=== PATIENT | female | born 1960 | race Caucasian/White ===

== ENCOUNTER 2021-06-18 17:31 | Inpatient (IN) ==
[2021-06-18 19:11] LABS: ABG Base Excess -1 mEq/L (-2 to 3); ABG HCO3 21 mEq/L (21-27); ABG Oxygen Saturation 97 % (95-98); ABG PCO2 28 mmHg (35-45); ABG PH 7.49 pH Units (7.32-7.45); ABG PO2 85 mmHg (85-104); ABG TCO2 22 mEq/L (20-26)
[2021-06-18] MEDS ORDERED: Naloxone 0.4 MG/ML INJ IVP PRN (19:39)
[2021-06-18] MEDS ORDERED: Ondansetron 4 MG/2 ML VIAL IVP PRN (19:39)
[2021-06-18] MEDS: Acetaminophen 325 MG TABLET PO PRN (20:31)
[2021-06-18] MEDS ORDERED: Isovue-370 500 ML BOTTLE IVP ONE (22:48)
[2021-06-18] MEDS ORDERED: cefTRIAXone 1,000 MG in 0.9 % Sodium Chloride Mini Bag 100 ML IVPB SCH (22:54)
[2021-06-18] MEDS ORDERED: Azithromycin 500 MG in 0.9 % Sodium Chloride 250 ML IVPB SCH (23:00)
[2021-06-19 01:52] LABS: Basophils # 0.1 K/mcL (0.0-0.2); Basophils % 0.8 %; Eosinophils % 0.2 %; Hematocrit 39.3 % (35.3-44.9); Hemoglobin 12.8 g/dL (11.5-15.4); Immature Granulocytes % 1.1 % (0-4); Lymphocytes # 0.9 K/mcL (0.6-4.6); Lymphocytes % 14.3 %; Mean Corpuscular HGB Conc 32.6 g/dL (31.6-35.5); Mean Corpuscular Hemoglobin 30.9 pg (28.0-33.3); Mean Corpuscular Volume 94.9 fL (83.0-100.0); Mean Platelet Volume 12.1 fL (9.4-12.4); Monocytes # 0.2 K/mcL (0.0-1.3); Monocytes % 3.6 %; Neutrophils # 4.9 K/mcL (1.6-8.9); Platelet Count 173 K/mcL (140-400); Red Blood Count 4.14 M/mcL (3.82-4.97); White Blood Count 6.1 K/mcL (4.3-11.1)
[2021-06-19 02:09] LABS: Albumin 3.4 g/dL (3.5-5.7); Bilirubin,Direct 0.2 mg/dL (0.0-0.2); Bilirubin,Indirect 0.3 mg/dL (0.0-1.0); Bilirubin,Total 0.5 mg/dL (0.3-1.0); Globulin 3.4 g/dL (2.4-3.5); Total Protein 6.8 g/dL (6.4-8.9)
[2021-06-19 02:22] LABS: Platelet Estimate Normal (Normal)
[2021-06-19 02:37] LABS: BUN/Creatinine Ratio 25 (6-26); Blood Urea Nitrogen 20 mg/dL (8-23); Calcium 8.5 mg/dL (8.6-10.3); Carbon Dioxide 16 mEq/L (23-29); Chloride 104 mEq/L (98-107); Ferritin 313 ng/mL (10-120); Glucose 133 mg/dL (70-105); Lactate Dehydrogenase 552 Units/L (140-271); Osmolality,Calculated 283 (280-300); Potassium 4.3 mEq/L (3.5-5.1); Sodium 134 mEq/L (136-145); eGFR For African Americans > 60 (> 60); eGFR For Non-African Americans > 60 (> 60)
[2021-06-19] MEDS ORDERED: Remdesivir 200 MG in 0.9 % Sodium Chloride 100 ML IVPB ONE (03:02)
[2021-06-19] MEDS: *HR* Enoxaparin 40 MG/0.4 ML SYRINGE SQ SCH (05:29)
[2021-06-19] MEDS ORDERED: Dexamethasone Sodium Phos/PF 10 MG/ML VIAL IVP SCH (09:00)
[2021-06-19] MEDS ORDERED: TOCILIZUMAB IVPB ONE (14:00)
[2021-06-19] MEDS ORDERED: SODIUM CHLORIDE 0.9% IVPB ONE (14:00)
[2021-06-20] MEDS ORDERED: Remdesivir 100 MG in 0.9 % Sodium Chloride 100 ML IVPB SCH (04:00)
[2021-06-20] MEDS: *HR* Enoxaparin 40 MG/0.4 ML SYRINGE SQ SCH (05:53)
[2021-06-20] MEDS: Dexamethasone Sodium Phos/PF 10 MG/ML VIAL IVP SCH (08:25)
[2021-06-20] MEDS ORDERED: cefTRIAXone 1,000 MG in Water for inj. (sterile) 10 ML IVP SCH (09:00)
[2021-06-20] MEDS ORDERED: Azithromycin 250 MG TABLET PO SCH (09:00)
[2021-06-20 09:38] LABS: BUN/Creatinine Ratio 39 (6-26); Blood Urea Nitrogen 30 mg/dL (8-23); Carbon Dioxide 24 mEq/L (23-29); Chloride 105 mEq/L (98-107); Glucose 131 mg/dL (70-105); Osmolality,Calculated 294 (280-300); Potassium 4.3 mEq/L (3.5-5.1); Sodium 138 mEq/L (136-145); eGFR For African Americans > 60 (> 60); eGFR For Non-African Americans > 60 (> 60)
[2021-06-20 09:56] LABS: Ferritin 284 ng/mL (10-120)
[2021-06-20 11:22] LABS: C-Reactive Protein 105 mg/L (Less than 10); Calcium 8.8 mg/dL (8.6-10.3)
[2021-06-21] MEDS: *HR* Enoxaparin 40 MG/0.4 ML SYRINGE SQ SCH ×2 (06:28→21:42)
[2021-06-21 06:59] LABS: BUN/Creatinine Ratio 45 (6-26); Blood Urea Nitrogen 33 mg/dL (8-23); Calcium 9.1 mg/dL (8.6-10.3); Carbon Dioxide 24 mEq/L (23-29); Chloride 106 mEq/L (98-107); Glucose 133 mg/dL (70-105); Magnesium 2.5 mg/dL (1.6-2.6); Osmolality,Calculated 295 (280-300); Potassium 4.6 mEq/L (3.5-5.1); Sodium 138 mEq/L (136-145); eGFR For African Americans > 60 (> 60); eGFR For Non-African Americans > 60 (> 60)
[2021-06-21 07:12] LABS: Ferritin 280 ng/mL (10-120)
[2021-06-21] MEDS: Dexamethasone Sodium Phos/PF 10 MG/ML VIAL IVP SCH (09:06)
[2021-06-21 09:43] LABS: C-Reactive Protein 44 mg/L (Less than 10)
[2021-06-21 12:34] LABS: Hematocrit 41.3 % (35.3-44.9); Hemoglobin 13.4 g/dL (11.5-15.4); Mean Corpuscular HGB Conc 32.4 g/dL (31.6-35.5); Mean Corpuscular Hemoglobin 30.9 pg (28.0-33.3); Mean Corpuscular Volume 95.2 fL (83.0-100.0); Mean Platelet Volume 12.6 fL (9.4-12.4); Platelet Count 270 K/mcL (140-400); Red Blood Count 4.34 M/mcL (3.82-4.97); Red Cell Distribution Width 13.7 % (11.5-14.5)
[2021-06-21 12:44] LABS: White Blood Count 11.3 K/mcL (4.3-11.1)
[2021-06-21] MEDS: Furosemide 20 MG/2 ML VIAL IVP SCH (21:42)
[2021-06-22] MEDS ORDERED: *HR* LORazepam 2 MG/ML VIAL IVP ONE (00:44)
[2021-06-22 01:49] LABS: Hemoglobin 13.9 g/dL (11.5-15.4); Mean Corpuscular HGB Conc 33.1 g/dL (31.6-35.5); Mean Corpuscular Hemoglobin 30.6 pg (28.0-33.3); Mean Corpuscular Volume 92.5 fL (83.0-100.0); Mean Platelet Volume 12.1 fL (9.4-12.4); Platelet Count 232 K/mcL (140-400); Red Blood Count 4.54 M/mcL (3.82-4.97); Red Cell Distribution Width 13.4 % (11.5-14.5); White Blood Count 10.8 K/mcL (4.3-11.1)
[2021-06-22 02:06] LABS: BUN/Creatinine Ratio 39 (6-26); Blood Urea Nitrogen 31 mg/dL (8-23); C-Reactive Protein 29 mg/L (Less than 10); Carbon Dioxide 25 mEq/L (23-29); Chloride 104 mEq/L (98-107); Glucose 159 mg/dL (70-105); Osmolality,Calculated 296 (280-300); Potassium 4.6 mEq/L (3.5-5.1); Sodium 138 mEq/L (136-145); eGFR For African Americans > 60 (> 60); eGFR For Non-African Americans > 60 (> 60)
[2021-06-22] MEDS: Furosemide 20 MG/2 ML VIAL IVP SCH ×2 (07:35→20:24)
[2021-06-22] MEDS: Dexamethasone Sodium Phos/PF 10 MG/ML VIAL IVP SCH (07:35)
[2021-06-22] MEDS: *HR* Enoxaparin 40 MG/0.4 ML SYRINGE SQ SCH ×2 (07:36→20:24)
[2021-06-22] MEDS: Cholecalciferol (D-3) 1,000 UNIT (25MCG) TABLET PO SCH (09:42)
[2021-06-22] MEDS: Dexmedetomidine HCl 400 MCG/100 ML MLS IVC SCH (17:53)
[2021-06-22] MEDS: *HR* LORazepam 2 MG/ML VIAL IVP PRN (20:37)
[2021-06-23] MEDS: *HR* LORazepam 2 MG/ML VIAL IVP PRN ×3 (02:59→23:52)
[2021-06-23 04:27] LABS: BUN/Creatinine Ratio 39 (6-26); Blood Urea Nitrogen 34 mg/dL (8-23); Calcium 8.2 mg/dL (8.6-10.3); Carbon Dioxide 23 mEq/L (23-29); Chloride 104 mEq/L (98-107); Glucose 122 mg/dL (70-105); Magnesium 2.3 mg/dL (1.6-2.6); Osmolality,Calculated 295 (280-300); Phosphorous 4.6 mg/dL (2.7-4.5); Potassium 4.3 mEq/L (3.5-5.1); Sodium 138 mEq/L (136-145); eGFR For African Americans > 60 (> 60); eGFR For Non-African Americans > 60 (> 60)
[2021-06-23] MEDS: Furosemide 20 MG/2 ML VIAL IVP SCH ×2 (07:47→20:40)
[2021-06-23] MEDS: Cholecalciferol (D-3) 1,000 UNIT (25MCG) TABLET PO SCH (07:47)
[2021-06-23] MEDS: Dexamethasone Sodium Phos/PF 10 MG/ML VIAL IVP SCH (07:47)
[2021-06-23] MEDS: *HR* Enoxaparin 40 MG/0.4 ML SYRINGE SQ SCH ×2 (07:48→20:41)
[2021-06-23] MEDS: Acetaminophen 325 MG TABLET PO PRN (10:44)
[2021-06-23] MEDS: Dexmedetomidine HCl 400 MCG/100 ML MLS IVC SCH (11:00)
[2021-06-24 00:34] LABS: Basophils % 0.2 %; Eosinophils # 0.1 K/mcL (0.0-0.6); Eosinophils % 1.1 %; Hematocrit 45.6 % (35.3-44.9); Hemoglobin 15.2 g/dL (11.5-15.4); Immature Granulocytes % 1.6 % (0-4); Lymphocytes # 0.5 K/mcL (0.6-4.6); Lymphocytes % 3.8 %; Mean Corpuscular HGB Conc 33.3 g/dL (31.6-35.5); Mean Corpuscular Hemoglobin 30.3 pg (28.0-33.3); Mean Corpuscular Volume 90.8 fL (83.0-100.0); Mean Platelet Volume 11.9 fL (9.4-12.4); Monocytes # 0.2 K/mcL (0.0-1.3); Neutrophils # 11.2 K/mcL (1.6-8.9); Platelet Count 224 K/mcL (140-400); Red Blood Count 5.02 M/mcL (3.82-4.97); Red Cell Distribution Width 13.3 % (11.5-14.5); Segmented Neutrophils % 91.3 %; White Blood Count 12.2 K/mcL (4.3-11.1)
[2021-06-24 00:47] LABS: D-Dimer 6807 ng/mLFEU (0-500); Fibrinogen 235 mg/dL (169-393)
[2021-06-24] MEDS: Dexmedetomidine HCl 400 MCG/100 ML MLS IVC SCH ×2 (00:47→19:43)
[2021-06-24 00:54] LABS: BUN/Creatinine Ratio 39 (6-26); Blood Urea Nitrogen 36 mg/dL (8-23); Calcium 8.6 mg/dL (8.6-10.3); Carbon Dioxide 25 mEq/L (23-29); Chloride 98 mEq/L (98-107); Glucose 149 mg/dL (70-105); Lactate Dehydrogenase 596 Units/L (140-271); Osmolality,Calculated 289 (280-300); Potassium 4.1 mEq/L (3.5-5.1); Sodium 134 mEq/L (136-145); eGFR For African Americans > 60 (> 60); eGFR For Non-African Americans > 60 (> 60)
[2021-06-24 01:12] LABS: Ferritin 300 ng/mL (10-120)
[2021-06-24] MEDS: Melatonin 3 MG TABLET PO PRN ×2 (04:23→19:40)
[2021-06-24] MEDS ORDERED: Furosemide 40 MG/4 ML VIAL IVP ONE (05:16)
[2021-06-24] MEDS: Pantoprazole 40 MG VIAL IVP SCH (05:25)
[2021-06-24] MEDS: Dexamethasone Sodium Phos/PF 10 MG/ML VIAL IVP SCH (07:38)
[2021-06-24] MEDS: Furosemide 20 MG/2 ML VIAL IVP SCH ×2 (07:39→19:40)
[2021-06-24] MEDS: *HR* Enoxaparin 40 MG/0.4 ML SYRINGE SQ SCH ×2 (07:39→19:39)
[2021-06-24] MEDS: Cholecalciferol (D-3) 1,000 UNIT (25MCG) TABLET PO SCH (07:39)
[2021-06-24] MEDS ORDERED: amLODIPine 5 MG TABLET PO SCH (09:00)
[2021-06-24] MEDS: Acetaminophen 325 MG TABLET PO PRN (19:40)
[2021-06-25] MEDS: Dexmedetomidine HCl 400 MCG/100 ML MLS IVC SCH ×2 (04:48→19:38)
[2021-06-25] MEDS: Pantoprazole 40 MG VIAL IVP SCH (04:49)
[2021-06-25 05:46] LABS: BUN/Creatinine Ratio 50 (6-26); Blood Urea Nitrogen 51 mg/dL (8-23); Calcium 8.5 mg/dL (8.6-10.3); Carbon Dioxide 27 mEq/L (23-29); Chloride 94 mEq/L (98-107); Glucose 143 mg/dL (70-105); Osmolality,Calculated 288 (280-300); Potassium 4.1 mEq/L (3.5-5.1); Sodium 131 mEq/L (136-145); eGFR For African Americans > 60 (> 60); eGFR For Non-African Americans 55 (> 60)
[2021-06-25 05:47] LABS: Magnesium 2.7 mg/dL (1.6-2.6); Phosphorous 5.5 mg/dL (2.7-4.5)
[2021-06-25] MEDS: Cholecalciferol (D-3) 1,000 UNIT (25MCG) TABLET PO SCH (07:22)
[2021-06-25] MEDS: Dexamethasone Sodium Phos/PF 10 MG/ML VIAL IVP SCH (07:22)
[2021-06-25] MEDS: Furosemide 20 MG/2 ML VIAL IVP SCH ×2 (07:22→19:39)
[2021-06-25] MEDS: *HR* Enoxaparin 40 MG/0.4 ML SYRINGE SQ SCH ×2 (07:22→19:39)
[2021-06-25] MEDS: Acetaminophen 325 MG TABLET PO PRN (13:36)
[2021-06-26] MEDS: Dexmedetomidine HCl 400 MCG/100 ML MLS IVC SCH ×3 (03:36→20:51)
[2021-06-26 04:21] LABS: BUN/Creatinine Ratio 45 (6-26); Blood Urea Nitrogen 42 mg/dL (8-23); Calcium 8.9 mg/dL (8.6-10.3); Carbon Dioxide 29 mEq/L (23-29); Chloride 94 mEq/L (98-107); Glucose 129 mg/dL (70-105); Magnesium 2.7 mg/dL (1.6-2.6); Osmolality,Calculated 288 (280-300); Phosphorous 3.8 mg/dL (2.7-4.5); Potassium 3.9 mEq/L (3.5-5.1); Sodium 133 mEq/L (136-145); eGFR For African Americans > 60 (> 60); eGFR For Non-African Americans > 60 (> 60)
[2021-06-26] MEDS: Pantoprazole 40 MG VIAL IVP SCH (06:38)
[2021-06-26] MEDS: Cholecalciferol (D-3) 1,000 UNIT (25MCG) TABLET PO SCH (08:32)
[2021-06-26] MEDS: Furosemide 20 MG/2 ML VIAL IVP SCH ×2 (08:36→21:19)
[2021-06-26] MEDS: Dexamethasone Sodium Phos/PF 10 MG/ML VIAL IVP SCH (08:36)
[2021-06-26] MEDS: *HR* Enoxaparin 40 MG/0.4 ML SYRINGE SQ SCH ×2 (08:36→21:19)
[2021-06-26] MEDS: Acetaminophen 325 MG TABLET PO PRN (21:26)
[2021-06-27] MEDS ORDERED: Chloraseptic Spray 177 ML BOTTLE MM PRN (05:04)
[2021-06-27] MEDS: Pantoprazole 40 MG VIAL IVP SCH (05:53)
[2021-06-27] MEDS: *HR* Enoxaparin 40 MG/0.4 ML SYRINGE SQ SCH ×2 (09:19→20:18)
[2021-06-27] MEDS: Dexamethasone Sodium Phos/PF 10 MG/ML VIAL IVP SCH (09:19)
[2021-06-27] MEDS: Furosemide 20 MG/2 ML VIAL IVP SCH ×2 (09:19→20:17)
[2021-06-27] MEDS: Dexmedetomidine HCl 400 MCG/100 ML MLS IVC SCH (09:20)
[2021-06-27] MEDS: Cholecalciferol (D-3) 1,000 UNIT (25MCG) TABLET PO SCH (09:20)
[2021-06-27 10:52] LABS: Basophils % 0.2 %; Eosinophils # 0.4 K/mcL (0.0-0.6); Eosinophils % 2.4 %; Hematocrit 51.3 % (35.3-44.9); Hemoglobin 16.3 g/dL (11.5-15.4); Immature Granulocytes % 1.1 % (0-4); Lymphocytes # 0.4 K/mcL (0.6-4.6); Lymphocytes % 2.6 %; Mean Corpuscular HGB Conc 31.8 g/dL (31.6-35.5); Mean Corpuscular Hemoglobin 30.6 pg (28.0-33.3); Mean Corpuscular Volume 96.2 fL (83.0-100.0); Mean Platelet Volume 12.7 fL (9.4-12.4); Monocytes # 0.2 K/mcL (0.0-1.3); Monocytes % 0.9 %; Neutrophils # 15.9 K/mcL (1.6-8.9); Platelet Count 128 K/mcL (140-400); Red Blood Count 5.33 M/mcL (3.82-4.97); Red Cell Distribution Width 13.8 % (11.5-14.5); Segmented Neutrophils % 92.8 %; White Blood Count 17.1 K/mcL (4.3-11.1)
[2021-06-27 11:22] LABS: BUN/Creatinine Ratio 47 (6-26); Blood Urea Nitrogen 41 mg/dL (8-23); Calcium 8.5 mg/dL (8.6-10.3); Carbon Dioxide 18 mEq/L (23-29); Chloride 92 mEq/L (98-107); Glucose 158 mg/dL (70-105); Magnesium 2.5 mg/dL (1.6-2.6); Osmolality,Calculated 279 (280-300); Phosphorous 3.5 mg/dL (2.7-4.5); Potassium 4.2 mEq/L (3.5-5.1); Sodium 128 mEq/L (136-145); eGFR For African Americans > 60 (> 60); eGFR For Non-African Americans > 60 (> 60)
[2021-06-27] MEDS: Acetaminophen 325 MG TABLET PO PRN (18:25)
[2021-06-28 01:08] LABS: Fibrinogen 331 mg/dL (169-393)
[2021-06-28 01:12] LABS: D-Dimer 2440 ng/mLFEU (0-500)
[2021-06-28 01:15] LABS: Alanine Aminotransferase 51 Units/L (7-52); Albumin 3.5 g/dL (3.5-5.7); Albumin/Globulin Ratio 1.2 (1.1-2.2); Alkaline Phosphatase 72 Units/L (34-104); Aspartate Amino Transferase 39 Units/L (13-39); BUN/Creatinine Ratio 43 (6-26); Bilirubin,Total 0.7 mg/dL (0.3-1.0); Blood Urea Nitrogen 34 mg/dL (8-23); Calcium 8.7 mg/dL (8.6-10.3); Carbon Dioxide 28 mEq/L (23-29); Chloride 92 mEq/L (98-107); Glucose 121 mg/dL (70-105); Lactate Dehydrogenase 773 Units/L (140-271); Magnesium 2.6 mg/dL (1.6-2.6); Osmolality,Calculated 281 (280-300); Potassium 3.9 mEq/L (3.5-5.1); Sodium 131 mEq/L (136-145); Total Protein 6.5 g/dL (6.4-8.9); eGFR For African Americans > 60 (> 60); eGFR For Non-African Americans > 60 (> 60)
[2021-06-28 01:34] LABS: Ferritin 424 ng/mL (10-120)
[2021-06-28] MEDS: Pantoprazole 40 MG VIAL IVP SCH (05:11)
[2021-06-28] MEDS: Cholecalciferol (D-3) 1,000 UNIT (25MCG) TABLET PO SCH (08:13)
[2021-06-28] MEDS: Furosemide 20 MG/2 ML VIAL IVP SCH ×2 (08:14→19:35)
[2021-06-28] MEDS: *HR* Enoxaparin 40 MG/0.4 ML SYRINGE SQ SCH ×2 (08:15→19:35)
[2021-06-28] MEDS: Dexamethasone Sodium Phos/PF 10 MG/ML VIAL IVP SCH (08:15)
[2021-06-28] MEDS: Dexmedetomidine HCl 400 MCG/100 ML MLS IVC SCH (14:02)
[2021-06-28] MEDS: Acetaminophen 325 MG TABLET PO PRN (15:41)
[2021-06-28] MEDS: Ipratropium 1 PUFF INHALER IH PRN (15:45)
[2021-06-29] MEDS: Dexmedetomidine HCl 400 MCG/100 ML MLS IVC SCH (05:31)
[2021-06-29 06:35] LABS: Basophils % 0.3 %; Eosinophils # 0.4 K/mcL (0.0-0.6); Eosinophils % 2.9 %; Hematocrit 44.3 % (35.3-44.9); Lymphocytes # 0.5 K/mcL (0.6-4.6); Mean Corpuscular HGB Conc 33.9 g/dL (31.6-35.5); Mean Corpuscular Hemoglobin 30.7 pg (28.0-33.3); Mean Corpuscular Volume 90.6 fL (83.0-100.0); Mean Platelet Volume 12.7 fL (9.4-12.4); Monocytes # 0.4 K/mcL (0.0-1.3); Monocytes % 2.8 %; Neutrophils # 12.2 K/mcL (1.6-8.9); Platelet Count 173 K/mcL (140-400); Red Blood Count 4.89 M/mcL (3.82-4.97); Red Cell Distribution Width 13.6 % (11.5-14.5); White Blood Count 13.7 K/mcL (4.3-11.1)
[2021-06-29 06:52] LABS: Alanine Aminotransferase 43 Units/L (7-52); Albumin 3.7 g/dL (3.5-5.7); Albumin/Globulin Ratio 1.4 (1.1-2.2); Alkaline Phosphatase 74 Units/L (34-104); Aspartate Amino Transferase 34 Units/L (13-39); BUN/Creatinine Ratio 46 (6-26); Bilirubin,Direct 0.1 mg/dL (0.0-0.2); Bilirubin,Indirect 0.7 mg/dL (0.0-1.0); Bilirubin,Total 0.8 mg/dL (0.3-1.0); Blood Urea Nitrogen 37 mg/dL (8-23); Carbon Dioxide 29 mEq/L (23-29); Chloride 92 mEq/L (98-107); Globulin 2.7 g/dL (2.4-3.5); Glucose 89 mg/dL (70-105); Magnesium 2.8 mg/dL (1.6-2.6); Osmolality,Calculated 282 (280-300); Phosphorous 4.1 mg/dL (2.7-4.5); Potassium 3.6 mEq/L (3.5-5.1); Sodium 132 mEq/L (136-145); Total Protein 6.4 g/dL (6.4-8.9); eGFR For African Americans > 60 (> 60); eGFR For Non-African Americans > 60 (> 60)
[2021-06-29] MEDS: Furosemide 20 MG/2 ML VIAL IVP SCH ×2 (07:43→21:54)
[2021-06-29] MEDS: Cholecalciferol (D-3) 1,000 UNIT (25MCG) TABLET PO SCH (07:43)
[2021-06-29] MEDS: Dexamethasone Sodium Phos/PF 10 MG/ML VIAL IVP SCH (07:44)
[2021-06-29] MEDS: *HR* Enoxaparin 40 MG/0.4 ML SYRINGE SQ SCH (07:58)
[2021-06-29] MEDS: Ipratropium 1 PUFF INHALER IH PRN (11:00)
[2021-06-29] MEDS ORDERED: Isovue-370 500 ML BOTTLE IVP ONE (11:57)
[2021-06-29] MEDS ORDERED: *HR* Heparin 5,000 UNIT/ML VIAL IVP ONE (16:56)
[2021-06-29] MEDS ORDERED: *HR* Heparin 5,000 UNIT/ML VIAL IVP PRN ×2 (16:56)
[2021-06-29 18:05] LABS: Hematocrit 45.2 % (35.3-44.9); Hemoglobin 15.4 g/dL (11.5-15.4); Mean Corpuscular HGB Conc 34.1 g/dL (31.6-35.5); Mean Corpuscular Volume 91.1 fL (83.0-100.0); Mean Platelet Volume 12.9 fL (9.4-12.4); Platelet Count 197 K/mcL (140-400); Red Blood Count 4.96 M/mcL (3.82-4.97); Red Cell Distribution Width 13.6 % (11.5-14.5); White Blood Count 16.7 K/mcL (4.3-11.1)
[2021-06-29 18:11] LABS: INR 1.1; Prothrombin Time 12.8 Seconds (9.4-12.1)
[2021-06-29 18:12] LABS: Heparin anti-factor XA UFH 0.34 IU/mL (0.30-0.70)
[2021-06-29] MEDS: Heparin 25,000UNIT/250ML 1/2NS 25,000 UNIT/250 ML IV.SOLN IVC SCH (18:27)
[2021-06-29] MEDS: Acetaminophen 325 MG TABLET PO PRN (23:11)
[2021-06-29] MEDS: Melatonin 3 MG TABLET PO PRN (23:12)
[2021-06-30] MEDS: Dexmedetomidine HCl 400 MCG/100 ML MLS IVC SCH ×2 (00:09→21:54)
[2021-06-30 01:58] LABS: BUN/Creatinine Ratio 42 (6-26); Blood Urea Nitrogen 37 mg/dL (8-23); Calcium 8.7 mg/dL (8.6-10.3); Carbon Dioxide 29 mEq/L (23-29); Chloride 90 mEq/L (98-107); Glucose 129 mg/dL (70-105); Magnesium 2.7 mg/dL (1.6-2.6); Osmolality,Calculated 288 (280-300); Phosphorous 5.1 mg/dL (2.7-4.5); Potassium 3.7 mEq/L (3.5-5.1); Sodium 134 mEq/L (136-145); eGFR For African Americans > 60 (> 60); eGFR For Non-African Americans > 60 (> 60)
[2021-06-30] MEDS: Furosemide 20 MG/2 ML VIAL IVP SCH (08:54)
[2021-06-30] MEDS: Dexamethasone Sodium Phos/PF 10 MG/ML VIAL IVP SCH (08:55)
[2021-06-30] MEDS: Loratadine 10 MG TABLET PO SCH (12:51)
[2021-06-30] MEDS: Cholecalciferol (D-3) 1,000 UNIT (25MCG) TABLET PO SCH (12:51)
[2021-06-30] MEDS: Heparin 25,000UNIT/250ML 1/2NS 25,000 UNIT/250 ML IV.SOLN IVC SCH (14:16)
[2021-06-30] MEDS: Ipratropium 1 PUFF INHALER IH SCH (21:32)
[2021-06-30] MEDS: Melatonin 3 MG TABLET PO PRN (23:51)
[2021-07-01] MEDS: *HR* LORazepam 2 MG/ML VIAL IVP PRN ×3 (00:50→20:17)
[2021-07-01] MEDS ORDERED: Saliva Stimulant 44.3ml BOTTLE PO PRN (01:41)
[2021-07-01 03:15] LABS: Basophils % 0.3 %; Eosinophils # 0.5 K/mcL (0.0-0.6); Hematocrit 41.4 % (35.3-44.9); Hemoglobin 14.2 g/dL (11.5-15.4); Immature Granulocytes % 1.3 % (0-4); Lymphocytes # 0.7 K/mcL (0.6-4.6); Lymphocytes % 4.8 %; Mean Corpuscular HGB Conc 34.3 g/dL (31.6-35.5); Mean Corpuscular Hemoglobin 31.1 pg (28.0-33.3); Mean Corpuscular Volume 90.6 fL (83.0-100.0); Mean Platelet Volume 12.3 fL (9.4-12.4); Monocytes # 0.4 K/mcL (0.0-1.3); Monocytes % 2.8 %; Neutrophils # 13.1 K/mcL (1.6-8.9); Platelet Count 179 K/mcL (140-400); Red Blood Count 4.57 M/mcL (3.82-4.97); Red Cell Distribution Width 13.7 % (11.5-14.5); Segmented Neutrophils % 87.8 %; White Blood Count 14.9 K/mcL (4.3-11.1)
[2021-07-01 03:37] LABS: BUN/Creatinine Ratio 45 (6-26); Blood Urea Nitrogen 40 mg/dL (8-23); Calcium 8.7 mg/dL (8.6-10.3); Carbon Dioxide 27 mEq/L (23-29); Chloride 92 mEq/L (98-107); Glucose 153 mg/dL (70-105); Magnesium 2.7 mg/dL (1.6-2.6); Osmolality,Calculated 283 (280-300); Phosphorous 4.2 mg/dL (2.7-4.5); Potassium 3.9 mEq/L (3.5-5.1); Sodium 130 mEq/L (136-145); eGFR For African Americans > 60 (> 60); eGFR For Non-African Americans > 60 (> 60)
[2021-07-01] MEDS: Ipratropium 1 PUFF INHALER IH SCH ×4 (04:18→22:22)
[2021-07-01] MEDS: Dexmedetomidine HCl 400 MCG/100 ML MLS IVC SCH ×2 (06:19→15:07)
[2021-07-01] MEDS: Pantoprazole 40 MG VIAL IVP SCH (09:32)
[2021-07-01] MEDS: Dexamethasone Sodium Phos/PF 10 MG/ML VIAL IVP SCH (09:33)
[2021-07-01] MEDS: Loratadine 10 MG TABLET PO SCH (09:34)
[2021-07-01] MEDS: Cholecalciferol (D-3) 1,000 UNIT (25MCG) TABLET PO SCH (09:34)
[2021-07-01] MEDS: Doxycycline 100 MG in 0.9 % Sodium Chloride Mini Bag 100 ML IVPB SCH ×2 (11:45→19:00)
[2021-07-01] MEDS: Heparin 25,000UNIT/250ML 1/2NS 25,000 UNIT/250 ML IV.SOLN IVC SCH (20:14)
[2021-07-02] MEDS: Ipratropium 1 PUFF INHALER IH SCH ×4 (03:51→21:48)
[2021-07-02 05:03] LABS: Basophils % 0.2 %; Eosinophils # 0.3 K/mcL (0.0-0.6); Hematocrit 43.4 % (35.3-44.9); Immature Granulocytes % 1.2 % (0-4); Lymphocytes # 0.6 K/mcL (0.6-4.6); Lymphocytes % 4.6 %; Mean Corpuscular HGB Conc 32.3 g/dL (31.6-35.5); Mean Corpuscular Volume 92.9 fL (83.0-100.0); Mean Platelet Volume 12.7 fL (9.4-12.4); Monocytes # 0.3 K/mcL (0.0-1.3); Monocytes % 2.6 %; Neutrophils # 11.3 K/mcL (1.6-8.9); Platelet Count 199 K/mcL (140-400); Red Blood Count 4.67 M/mcL (3.82-4.97); Red Cell Distribution Width 13.8 % (11.5-14.5); Segmented Neutrophils % 89.4 %; White Blood Count 12.6 K/mcL (4.3-11.1)
[2021-07-02 05:20] LABS: Phosphorous 4.1 mg/dL (2.7-4.5)
[2021-07-02 05:23] LABS: BUN/Creatinine Ratio 45 (6-26); Blood Urea Nitrogen 35 mg/dL (8-23); Calcium 9.2 mg/dL (8.6-10.3); Carbon Dioxide 31 mEq/L (23-29); Chloride 95 mEq/L (98-107); Glucose 92 mg/dL (70-105); Magnesium 2.6 mg/dL (1.6-2.6); Osmolality,Calculated 292 (280-300); Potassium 3.8 mEq/L (3.5-5.1); Sodium 137 mEq/L (136-145); eGFR For African Americans > 60 (> 60); eGFR For Non-African Americans > 60 (> 60)
[2021-07-02] MEDS: Doxycycline 100 MG in 0.9 % Sodium Chloride Mini Bag 100 ML IVPB SCH ×2 (06:38→17:58)
[2021-07-02] MEDS: Cholecalciferol (D-3) 1,000 UNIT (25MCG) TABLET PO SCH (08:46)
[2021-07-02] MEDS: Pantoprazole 40 MG VIAL IVP SCH (08:47)
[2021-07-02] MEDS: Dexamethasone Sodium Phos/PF 10 MG/ML VIAL IVP SCH (08:47)
[2021-07-02] MEDS: Loratadine 10 MG TABLET PO SCH (08:47)
[2021-07-02] MEDS ORDERED: *HR* LORazepam 2 MG/ML VIAL IVP ONE (10:02)
[2021-07-02] MEDS ORDERED: Morphine Sulfate 2 MG/ML SYRINGE IVP ONE ×2 (10:03→11:20)
[2021-07-02] MEDS: Heparin 25,000UNIT/250ML 1/2NS 25,000 UNIT/250 ML IV.SOLN IVC SCH ×2 (11:16→19:24)
[2021-07-02 14:44] LABS: ABG Base Excess 3 mEq/L (-2 to 3); ABG HCO3 28 mEq/L (21-27); ABG Oxygen Saturation 90 % (95-98); ABG PCO2 45 mmHg (35-45); ABG PH 7.41 pH Units (7.32-7.45); ABG PO2 60 mmHg (85-104); ABG TCO2 30 mEq/L (20-26); Blood Gas Modality AVAPS; Blood Gas VT 500 cc
[2021-07-02] MEDS: Dexmedetomidine HCl 400 MCG/100 ML MLS IVC SCH (15:12)
[2021-07-02] MEDS ORDERED: D10% in Water 500 ML IVC PRN (15:29)
[2021-07-02] MEDS ORDERED: Clinimix E 5%-15% SOLUTION 2,000 ML with MVI, adult with vitamin K 10 ML IVC SCH (17:00)
[2021-07-02] MEDS: Ampicillin/Sulbactam 1,500 MG in 0.9 % Sodium Chloride Mini Bag 100 ML IVPB SCH ×2 (17:27→18:29)
[2021-07-02] MEDS ORDERED: D5% in Water 1,000 ML IVC PRN (17:33)
[2021-07-02] MEDS ORDERED: Dextrose Gel 15 GM/37.5 ML TUBE PO PRN ×2 (17:33)
[2021-07-02] MEDS ORDERED: *HR* Dextrose 50 % in Water (Syg) 50 ML SYRINGE IVP PRN (17:47)
[2021-07-02] MEDS: Furosemide 40 MG/4 ML VIAL IVP SCH (17:54)
[2021-07-02] MEDS: Insulin LISPRO 300 UNITS/3 ML VIAL SUBQ SCH ×2 (19:35→23:01)
[2021-07-03] MEDS: Dexmedetomidine HCl 400 MCG/100 ML MLS IVC SCH ×2 (01:06→16:29)
[2021-07-03] MEDS: Heparin 25,000UNIT/250ML 1/2NS 25,000 UNIT/250 ML IV.SOLN IVC SCH ×2 (01:44→19:05)
[2021-07-03 03:08] LABS: Basophils % 0.2 %; Eosinophils # 0.3 K/mcL (0.0-0.6); Eosinophils % 2.5 %; Hematocrit 40.4 % (35.3-44.9); Hemoglobin 13.4 g/dL (11.5-15.4); Immature Granulocytes % 1.2 % (0-4); Immature Platelets 13.2 % (1.1-6.1); Lymphocytes # 0.6 K/mcL (0.6-4.6); Lymphocytes % 4.8 %; Mean Corpuscular HGB Conc 33.2 g/dL (31.6-35.5); Mean Corpuscular Hemoglobin 30.9 pg (28.0-33.3); Mean Corpuscular Volume 93.1 fL (83.0-100.0); Monocytes # 0.4 K/mcL (0.0-1.3); Neutrophils # 10.7 K/mcL (1.6-8.9); Platelet Count 182 K/mcL (140-400); Red Blood Count 4.34 M/mcL (3.82-4.97); Red Cell Distribution Width 13.8 % (11.5-14.5); Segmented Neutrophils % 88.3 %; White Blood Count 12.1 K/mcL (4.3-11.1)
[2021-07-03 03:35] LABS: BUN/Creatinine Ratio 56 (6-26); Blood Urea Nitrogen 48 mg/dL (8-23); Calcium 9.1 mg/dL (8.6-10.3); Carbon Dioxide 29 mEq/L (23-29); Chloride 97 mEq/L (98-107); Glucose 168 mg/dL (70-105); Magnesium 2.7 mg/dL (1.6-2.6); Osmolality,Calculated 300 (280-300); Phosphorous 4.6 mg/dL (2.7-4.5); Sodium 137 mEq/L (136-145); eGFR For African Americans > 60 (> 60); eGFR For Non-African Americans > 60 (> 60)
[2021-07-03] MEDS: Ipratropium 1 PUFF INHALER IH SCH ×4 (03:41→21:47)
[2021-07-03] MEDS: Insulin LISPRO 300 UNITS/3 ML VIAL SUBQ SCH ×6 (03:49→23:08)
[2021-07-03] MEDS: Doxycycline 100 MG in 0.9 % Sodium Chloride Mini Bag 100 ML IVPB SCH ×2 (05:01→16:53)
[2021-07-03] MEDS: Ampicillin/Sulbactam 1,500 MG in 0.9 % Sodium Chloride Mini Bag 100 ML IVPB SCH ×4 (06:03→18:36)
[2021-07-03] MEDS: Pantoprazole 40 MG VIAL IVP SCH (07:51)
[2021-07-03] MEDS: Dexamethasone Sodium Phos/PF 10 MG/ML VIAL IVP SCH (07:51)
[2021-07-03] MEDS: Furosemide 40 MG/4 ML VIAL IVP SCH ×2 (07:51→16:29)
[2021-07-03] MEDS ORDERED: Clinimix E 5%-15% SOLUTION 2,000 ML with MVI, adult with vitamin K 10 ML IVC SCH (17:00)
[2021-07-04] MEDS: Ipratropium 1 PUFF INHALER IH SCH ×4 (03:28→21:56)
[2021-07-04] MEDS: Dexmedetomidine HCl 400 MCG/100 ML MLS IVC SCH ×2 (03:30→09:19)
[2021-07-04] MEDS: Insulin LISPRO 300 UNITS/3 ML VIAL SUBQ SCH ×6 (04:11→23:37)
[2021-07-04 04:18] LABS: Hematocrit 39.2 % (35.3-44.9); Hemoglobin 12.8 g/dL (11.5-15.4); Mean Corpuscular HGB Conc 32.7 g/dL (31.6-35.5); Mean Corpuscular Hemoglobin 30.7 pg (28.0-33.3); Mean Platelet Volume 12.8 fL (9.4-12.4); Platelet Count 160 K/mcL (140-400); Red Blood Count 4.17 M/mcL (3.82-4.97); Red Cell Distribution Width 14.1 % (11.5-14.5); White Blood Count 11.3 K/mcL (4.3-11.1)
[2021-07-04 04:40] LABS: BUN/Creatinine Ratio 53 (6-26); Blood Urea Nitrogen 43 mg/dL (8-23); Carbon Dioxide 31 mEq/L (23-29); Chloride 97 mEq/L (98-107); Glucose 187 mg/dL (70-105); Magnesium 2.5 mg/dL (1.6-2.6); Osmolality,Calculated 302 (280-300); Phosphorous 3.4 mg/dL (2.7-4.5); Potassium 3.3 mEq/L (3.5-5.1); Sodium 138 mEq/L (136-145); eGFR For African Americans > 60 (> 60); eGFR For Non-African Americans > 60 (> 60)
[2021-07-04] MEDS: Heparin 25,000UNIT/250ML 1/2NS 25,000 UNIT/250 ML IV.SOLN IVC SCH ×2 (04:55→09:19)
[2021-07-04] MEDS: Doxycycline 100 MG in 0.9 % Sodium Chloride Mini Bag 100 ML IVPB SCH ×2 (05:17→17:13)
[2021-07-04] MEDS: Ampicillin/Sulbactam 1,500 MG in 0.9 % Sodium Chloride Mini Bag 100 ML IVPB SCH ×4 (06:01→18:20)
[2021-07-04] MEDS: Furosemide 40 MG/4 ML VIAL IVP SCH ×2 (07:10→16:06)
[2021-07-04] MEDS: Dexamethasone Sodium Phos/PF 10 MG/ML VIAL IVP SCH (07:10)
[2021-07-04] MEDS: Pantoprazole 40 MG VIAL IVP SCH (07:10)
[2021-07-04] MEDS ORDERED: D5% in Water 1,000 ML IVC PRN (09:05)
[2021-07-04] MEDS ORDERED: Chloraseptic Spray 177 ML BOTTLE MM PRN (09:05)
[2021-07-04] MEDS ORDERED: D10% in Water 500 ML IVC PRN (09:05)
[2021-07-04] MEDS ORDERED: *HR* Heparin 5,000 UNIT/ML VIAL IVP PRN ×2 (09:05)
[2021-07-04] MEDS ORDERED: Dextrose Gel 15 GM/37.5 ML TUBE PO PRN ×2 (09:05)
[2021-07-04] MEDS ORDERED: Clinimix E 5%-15% SOLUTION 2,000 ML with MVI, adult with vitamin K 10 ML IVC SCH ×3 (09:05→17:00)
[2021-07-04] MEDS ORDERED: Ondansetron 4 MG/2 ML VIAL IVP PRN (09:05)
[2021-07-04] MEDS ORDERED: Naloxone 0.4 MG/ML INJ IVP PRN (09:05)
[2021-07-04] MEDS ORDERED: Saliva Stimulant 44.3ml BOTTLE PO PRN (09:05)
[2021-07-04] MEDS ORDERED: *HR* LORazepam 2 MG/ML VIAL IVP PRN (09:05)
[2021-07-04] MEDS ORDERED: *HR* Dextrose 50 % in Water (Syg) 50 ML SYRINGE IVP PRN (09:05)
[2021-07-05] MEDS: Ampicillin/Sulbactam 1,500 MG in 0.9 % Sodium Chloride Mini Bag 100 ML IVPB SCH ×5 (00:01→23:54)
[2021-07-05] MEDS: Heparin 25,000UNIT/250ML 1/2NS 25,000 UNIT/250 ML IV.SOLN IVC SCH ×2 (00:02→12:10)
[2021-07-05] MEDS: Dexmedetomidine HCl 400 MCG/100 ML MLS IVC SCH ×2 (03:08→23:55)
[2021-07-05] MEDS: Ipratropium 1 PUFF INHALER IH SCH ×4 (03:21→21:00)
[2021-07-05 04:29] LABS: BUN/Creatinine Ratio 58 (6-26); Blood Urea Nitrogen 37 mg/dL (8-23); Calcium 9.4 mg/dL (8.6-10.3); Carbon Dioxide 31 mEq/L (23-29); Chloride 97 mEq/L (98-107); Glucose 146 mg/dL (70-105); Magnesium 2.4 mg/dL (1.6-2.6); Osmolality,Calculated 297 (280-300); Phosphorous 3.6 mg/dL (2.7-4.5); Potassium 3.4 mEq/L (3.5-5.1); Sodium 138 mEq/L (136-145); eGFR For African Americans > 60 (> 60); eGFR For Non-African Americans > 60 (> 60)
[2021-07-05 04:31] LABS: Hematocrit 40.2 % (35.3-44.9); Mean Corpuscular HGB Conc 32.3 g/dL (31.6-35.5); Mean Corpuscular Hemoglobin 30.5 pg (28.0-33.3); Mean Corpuscular Volume 94.4 fL (83.0-100.0); Mean Platelet Volume 12.6 fL (9.4-12.4); Platelet Count 176 K/mcL (140-400); Red Blood Count 4.26 M/mcL (3.82-4.97); Red Cell Distribution Width 14.4 % (11.5-14.5); White Blood Count 14.1 K/mcL (4.3-11.1)
[2021-07-05] MEDS: Insulin LISPRO 300 UNITS/3 ML VIAL SUBQ SCH ×7 (04:59→23:54)
[2021-07-05] MEDS: Doxycycline 100 MG in 0.9 % Sodium Chloride Mini Bag 100 ML IVPB SCH ×2 (05:00→17:05)
[2021-07-05] MEDS: Pantoprazole 40 MG VIAL IVP SCH (08:53)
[2021-07-05] MEDS: Furosemide 40 MG/4 ML VIAL IVP SCH ×2 (08:53→17:05)
[2021-07-05] MEDS ORDERED: Dexamethasone Sodium Phos/PF 10 MG/ML VIAL IVP SCH (09:00)
[2021-07-05] MEDS ORDERED: *HR* Heparin 5,000 UNIT/ML VIAL IVP PRN (15:16)
[2021-07-05] MEDS: *HR* Enoxaparin 100 MG/ML SYRINGE SQ SCH (15:40)
[2021-07-05] MEDS: *HR* Labetalol 20 MG/4 ML SYRINGE IVP SCH ×2 (15:40→20:12)
[2021-07-05] MEDS ORDERED: Clinimix E 5%-15% SOLUTION 2,000 ML with MVI, adult with vitamin K 10 ML IVC SCH (17:00)
[2021-07-06 03:31] LABS: Hematocrit 44.5 % (35.3-44.9); Hemoglobin 14.4 g/dL (11.5-15.4); Mean Corpuscular HGB Conc 32.4 g/dL (31.6-35.5); Mean Corpuscular Volume 95.9 fL (83.0-100.0); Mean Platelet Volume 12.9 fL (9.4-12.4); Platelet Count 188 K/mcL (140-400); Red Blood Count 4.64 M/mcL (3.82-4.97); Red Cell Distribution Width 14.7 % (11.5-14.5); White Blood Count 19.4 K/mcL (4.3-11.1)
[2021-07-06 03:50] LABS: BUN/Creatinine Ratio 55 (6-26); Blood Urea Nitrogen 38 mg/dL (8-23); Calcium 9.7 mg/dL (8.6-10.3); Carbon Dioxide 27 mEq/L (23-29); Chloride 102 mEq/L (98-107); Glucose 176 mg/dL (70-105); Magnesium 2.4 mg/dL (1.6-2.6); Osmolality,Calculated 303 (280-300); Phosphorous 3.2 mg/dL (2.7-4.5); Potassium 4.1 mEq/L (3.5-5.1); Sodium 140 mEq/L (136-145); eGFR For African Americans > 60 (> 60); eGFR For Non-African Americans > 60 (> 60)
[2021-07-06] MEDS: *HR* Labetalol 20 MG/4 ML SYRINGE IVP SCH ×4 (04:17→21:14)
[2021-07-06] MEDS: *HR* Enoxaparin 100 MG/ML SYRINGE SQ SCH ×2 (04:18→16:18)
[2021-07-06] MEDS: Insulin LISPRO 300 UNITS/3 ML VIAL SUBQ SCH ×5 (04:18→21:13)
[2021-07-06] MEDS: Ipratropium 1 PUFF INHALER IH SCH ×4 (04:43→22:17)
[2021-07-06] MEDS: Doxycycline 100 MG in 0.9 % Sodium Chloride Mini Bag 100 ML IVPB SCH ×2 (05:26→17:37)
[2021-07-06] MEDS: Ampicillin/Sulbactam 1,500 MG in 0.9 % Sodium Chloride Mini Bag 100 ML IVPB SCH ×3 (05:27→18:55)
[2021-07-06] MEDS: Pantoprazole 40 MG VIAL IVP SCH (07:52)
[2021-07-06] MEDS: Dexamethasone Sodium Phos/PF 10 MG/ML VIAL IVP SCH (07:53)
[2021-07-06] MEDS: Furosemide 40 MG/4 ML VIAL IVP SCH ×2 (07:54→17:37)
[2021-07-06] MEDS: Dexmedetomidine HCl 400 MCG/100 ML MLS IVC SCH (16:17)
[2021-07-06] MEDS ORDERED: Clinimix E 5%-15% SOLUTION 2,000 ML with MVI, adult with vitamin K 10 ML IVC SCH (17:00)
[2021-07-07] MEDS: Insulin LISPRO 300 UNITS/3 ML VIAL SUBQ SCH ×7 (00:04→23:58)
[2021-07-07] MEDS: Ampicillin/Sulbactam 1,500 MG in 0.9 % Sodium Chloride Mini Bag 100 ML IVPB SCH ×4 (00:05→18:04)
[2021-07-07] MEDS: Dexmedetomidine HCl 400 MCG/100 ML MLS IVC SCH ×4 (02:55→20:42)
[2021-07-07] MEDS: *HR* Labetalol 20 MG/4 ML SYRINGE IVP SCH ×4 (03:00→20:42)
[2021-07-07] MEDS: *HR* Enoxaparin 100 MG/ML SYRINGE SQ SCH ×2 (03:02→16:24)
[2021-07-07] MEDS: Ipratropium 1 PUFF INHALER IH SCH ×4 (03:31→21:15)
[2021-07-07] MEDS: Doxycycline 100 MG in 0.9 % Sodium Chloride Mini Bag 100 ML IVPB SCH ×2 (06:14→16:24)
[2021-07-07] MEDS: Pantoprazole 40 MG VIAL IVP SCH (08:40)
[2021-07-07] MEDS: Dexamethasone Sodium Phos/PF 10 MG/ML VIAL IVP SCH (08:40)
[2021-07-07] MEDS: Furosemide 40 MG/4 ML VIAL IVP SCH ×2 (08:40→16:23)
[2021-07-07] MEDS: Morphine Sulfate 2 MG/ML SYRINGE IVP PRN ×3 (09:59→23:59)
[2021-07-07] MEDS ORDERED: Clinimix E 5%-15% SOLUTION 2,000 ML with MVI, adult with vitamin K 10 ML IVC SCH (17:00)
[2021-07-07 18:18] LABS: Hematocrit 44.3 % (35.3-44.9); Hemoglobin 14.3 g/dL (11.5-15.4); Immature Platelets 13.8 % (1.1-6.1); Mean Corpuscular HGB Conc 32.3 g/dL (31.6-35.5); Mean Corpuscular Hemoglobin 31.1 pg (28.0-33.3); Mean Corpuscular Volume 96.3 fL (83.0-100.0); Mean Platelet Volume 13.2 fL (9.4-12.4); Red Blood Count 4.6 M/mcL (3.82-4.97); Red Cell Distribution Width 15.1 % (11.5-14.5); White Blood Count 18.2 K/mcL (4.3-11.1)
[2021-07-07 21:50] LABS: BUN/Creatinine Ratio 70 (6-26); Blood Urea Nitrogen 53 mg/dL (8-23); Calcium 9.6 mg/dL (8.6-10.3); Carbon Dioxide 30 mEq/L (23-29); Chloride 104 mEq/L (98-107); Glucose 281 mg/dL (70-105); Magnesium 2.3 mg/dL (1.6-2.6); Osmolality,Calculated 321 (280-300); Phosphorous 4.6 mg/dL (2.7-4.5); Potassium 4.2 mEq/L (3.5-5.1); Sodium 143 mEq/L (136-145); eGFR For African Americans > 60 (> 60); eGFR For Non-African Americans > 60 (> 60)
[2021-07-08] MEDS: Dexmedetomidine HCl 400 MCG/100 ML MLS IVC SCH ×3 (00:08→08:24)
[2021-07-08] MEDS: Ampicillin/Sulbactam 1,500 MG in 0.9 % Sodium Chloride Mini Bag 100 ML IVPB SCH ×4 (00:19→23:54)
[2021-07-08] MEDS: Ipratropium 1 PUFF INHALER IH SCH ×4 (03:56→21:40)
[2021-07-08] MEDS: Morphine Sulfate 2 MG/ML SYRINGE IVP PRN ×2 (04:25→09:47)
[2021-07-08] MEDS: *HR* Labetalol 20 MG/4 ML SYRINGE IVP SCH ×2 (04:26→08:21)
[2021-07-08] MEDS: Insulin LISPRO 300 UNITS/3 ML VIAL SUBQ SCH ×5 (04:32→20:30)
[2021-07-08] MEDS: *HR* Enoxaparin 100 MG/ML SYRINGE SQ SCH ×2 (05:33→15:02)
[2021-07-08] MEDS: Doxycycline 100 MG in 0.9 % Sodium Chloride Mini Bag 100 ML IVPB SCH ×2 (06:31→17:39)
[2021-07-08 06:43] LABS: Hematocrit 40.3 % (35.3-44.9); Hemoglobin 13.2 g/dL (11.5-15.4); Immature Platelets 15.1 % (1.1-6.1); Mean Corpuscular HGB Conc 32.8 g/dL (31.6-35.5); Mean Corpuscular Hemoglobin 32.1 pg (28.0-33.3); Mean Corpuscular Volume 98.1 fL (83.0-100.0); Mean Platelet Volume 13.1 fL (9.4-12.4); Red Blood Count 4.11 M/mcL (3.82-4.97); White Blood Count 14.4 K/mcL (4.3-11.1)
[2021-07-08] MEDS: Dexamethasone Sodium Phos/PF 10 MG/ML VIAL IVP SCH (08:15)
[2021-07-08] MEDS: Furosemide 40 MG/4 ML VIAL IVP SCH ×2 (08:15→18:12)
[2021-07-08] MEDS: Pantoprazole 40 MG VIAL IVP SCH (08:16)
[2021-07-08] MEDS ORDERED: 0.9 % Sodium Chloride 1,000 ML ONE (10:20)
[2021-07-08 10:24] LABS: BUN/Creatinine Ratio 78 (6-26); Blood Urea Nitrogen 56 mg/dL (8-23); Calcium 9.8 mg/dL (8.6-10.3); Carbon Dioxide 23 mEq/L (23-29); Chloride 108 mEq/L (98-107); Glucose 199 mg/dL (70-105); Magnesium 2.4 mg/dL (1.6-2.6); Osmolality,Calculated 329 (280-300); Phosphorous 4.2 mg/dL (2.7-4.5); Potassium 4.1 mEq/L (3.5-5.1); Sodium 149 mEq/L (136-145); eGFR For African Americans > 60 (> 60); eGFR For Non-African Americans > 60 (> 60)
[2021-07-08] MEDS ORDERED: *HR* Midazolam HCl 5 MG/5 ML VIAL IVP ONE ×3 (10:29→11:29)
[2021-07-08] MEDS ORDERED: *HR* Rocuronium Bromide 50 MG/5 ML VIAL IVP ONE (11:29)
[2021-07-08] MEDS ORDERED: *HR* Succinylcholine 200 MG/10 ML VIAL IVP ONE (11:29)
[2021-07-08] MEDS ORDERED: *HR* Propofol 200 MG/20 ML VIAL IVP ONE (11:29)
[2021-07-08] MEDS: Cisatracurium 200 MG in 0.9 % Sodium Chloride 180 ML IVC SCH ×2 (11:45→21:33)
[2021-07-08] MEDS: FentaNYL (PF) 1,000 MCG/100 ML IV.SOLN IVC SCH ×2 (11:45→17:43)
[2021-07-08 12:06] LABS: ABG Base Excess 4 mEq/L (-2 to 3); ABG HCO3 35 mEq/L (21-27); ABG Oxygen Saturation 94 % (95-98); ABG PCO2 83 mmHg (35-45); ABG PH 7.23 pH Units (7.32-7.45); ABG PO2 86 mmHg (85-104); ABG TCO2 37 mEq/L (20-26); Blood Gas Modality ASSIST CONTROL; Blood Gas VT 350 cc
[2021-07-08] MEDS ORDERED: Artificial Tears SOLN 15 ML BOTTLE BOTH EYES PRN (12:48)
[2021-07-08] MEDS ORDERED: Norepinephrine 4 MG/254 ML in 0.9% Sodium Chloride IVC ONE (12:51)
[2021-07-08 14:55] LABS: C-Reactive Protein 95 mg/L (Less than 10); Lactate Dehydrogenase 525 Units/L (140-271)
[2021-07-08] MEDS: Artificial Tears SOLN 15 ML BOTTLE BOTH EYES SCH ×3 (15:02→23:55)
[2021-07-08] MEDS ORDERED: *HR* Alteplase (Cathflo) 2 MG VIAL IVP ONE (15:39)
[2021-07-08] MEDS ORDERED: Clinimix E 5%-15% SOLUTION 2,000 ML with MVI, adult with vitamin K 10 ML IVC SCH (17:00)
[2021-07-08 17:09] LABS: Prothrombin Time 11.8 Seconds (9.4-12.1)
[2021-07-08] MEDS: Norepinephrine 4 MG/254 ML IV.SOLN IVC SCH (17:12)
[2021-07-08] MEDS: Chlorhexidine Rinse 15 ML MOUTHWASH MM SCH (19:58)
[2021-07-09] MEDS: Insulin LISPRO 300 UNITS/3 ML VIAL SUBQ SCH ×7 (00:30→23:10)
[2021-07-09] MEDS: Ipratropium 1 PUFF INHALER IH SCH ×4 (03:27→21:50)
[2021-07-09] MEDS: FentaNYL (PF) 1,000 MCG/100 ML IV.SOLN IVC SCH ×3 (04:20→23:23)
[2021-07-09] MEDS: Artificial Tears SOLN 15 ML BOTTLE BOTH EYES SCH ×6 (04:21→23:08)
[2021-07-09 04:45] LABS: ABG Base Excess 6 mEq/L (-2 to 3); ABG HCO3 35 mEq/L (21-27); ABG Oxygen Saturation 95 % (95-98); ABG PCO2 78 mmHg (35-45); ABG PH 7.26 pH Units (7.32-7.45); ABG PO2 92 mmHg (85-104); ABG TCO2 38 mEq/L (20-26); Blood Gas Modality ASSIST CONTROL; Blood Gas VT 350 cc
[2021-07-09 04:53] LABS: BUN/Creatinine Ratio 67 (6-26); Blood Urea Nitrogen 49 mg/dL (8-23); Calcium 9.4 mg/dL (8.6-10.3); Carbon Dioxide 34 mEq/L (23-29); Chloride 107 mEq/L (98-107); Glucose 171 mg/dL (70-105); Magnesium 2.5 mg/dL (1.6-2.6); Osmolality,Calculated 317 (280-300); Phosphorous 4.2 mg/dL (2.7-4.5); Potassium 4.5 mEq/L (3.5-5.1); Sodium 145 mEq/L (136-145); eGFR For African Americans > 60 (> 60); eGFR For Non-African Americans > 60 (> 60)
[2021-07-09] MEDS: *HR* Enoxaparin 100 MG/ML SYRINGE SQ SCH ×2 (05:19→16:48)
[2021-07-09] MEDS: Ampicillin/Sulbactam 1,500 MG in 0.9 % Sodium Chloride Mini Bag 100 ML IVPB SCH ×4 (05:19→21:00)
[2021-07-09] MEDS: Doxycycline 100 MG in 0.9 % Sodium Chloride Mini Bag 100 ML IVPB SCH ×2 (05:19→17:03)
[2021-07-09] MEDS: Pantoprazole 40 MG VIAL IVP SCH (07:57)
[2021-07-09] MEDS: Chlorhexidine Rinse 15 ML MOUTHWASH MM SCH ×2 (07:57→19:16)
[2021-07-09] MEDS: Furosemide 40 MG/4 ML VIAL IVP SCH ×2 (07:57→16:50)
[2021-07-09] MEDS: Dexamethasone Sodium Phos/PF 10 MG/ML VIAL IVP SCH (07:57)
[2021-07-09] MEDS: Cisatracurium 200 MG in 0.9 % Sodium Chloride 180 ML IVC SCH ×2 (09:42→20:04)
[2021-07-09 11:18] LABS: Hematocrit 41.1 % (35.3-44.9); Hemoglobin 12.2 g/dL (11.5-15.4); Immature Platelets 17.5 % (1.1-6.1); Mean Corpuscular HGB Conc 29.7 g/dL (31.6-35.5); Mean Corpuscular Hemoglobin 30.6 pg (28.0-33.3); Mean Platelet Volume 13.2 fL (9.4-12.4); Red Blood Count 3.99 M/mcL (3.82-4.97); Red Cell Distribution Width 15.5 % (11.5-14.5); White Blood Count 15.8 K/mcL (4.3-11.1)
[2021-07-09] MEDS: Norepinephrine 4 MG/254 ML IV.SOLN IVC SCH (16:18)
[2021-07-09] MEDS ORDERED: Clinimix E 5%-15% SOLUTION 2,000 ML with MVI, adult with vitamin K 10 ML, ZN/CU/MN/SE... IVC SCH (17:00)
[2021-07-10] MEDS: Artificial Tears SOLN 15 ML BOTTLE BOTH EYES SCH ×6 (03:07→23:01)
[2021-07-10] MEDS: *HR* Enoxaparin 100 MG/ML SYRINGE SQ SCH ×2 (03:10→17:11)
[2021-07-10] MEDS: Insulin LISPRO 300 UNITS/3 ML VIAL SUBQ SCH ×6 (03:15→23:02)
[2021-07-10 03:20] LABS: Hemoglobin 11.7 g/dL (11.5-15.4)
[2021-07-10 03:22] LABS: Hematocrit 39.2 % (35.3-44.9); Immature Platelets 16.9 % (1.1-6.1); Mean Corpuscular HGB Conc 29.8 g/dL (31.6-35.5); Mean Corpuscular Hemoglobin 30.5 pg (28.0-33.3); Mean Corpuscular Volume 102.3 fL (83.0-100.0); Mean Platelet Volume 13.5 fL (9.4-12.4); Red Blood Count 3.83 M/mcL (3.82-4.97); Red Cell Distribution Width 15.1 % (11.5-14.5)
[2021-07-10] MEDS: Ipratropium 1 PUFF INHALER IH SCH ×4 (03:25→21:57)
[2021-07-10 03:35] LABS: BUN/Creatinine Ratio 70 (6-26); Blood Urea Nitrogen 43 mg/dL (8-23); Carbon Dioxide 37 mEq/L (23-29); Chloride 105 mEq/L (98-107); Glucose 223 mg/dL (70-105); Magnesium 2.4 mg/dL (1.6-2.6); Osmolality,Calculated 316 (280-300); Phosphorous 3.3 mg/dL (2.7-4.5); Potassium 4.2 mEq/L (3.5-5.1); Sodium 144 mEq/L (136-145); eGFR For African Americans > 60 (> 60); eGFR For Non-African Americans > 60 (> 60)
[2021-07-10] MEDS: Ampicillin/Sulbactam 1,500 MG in 0.9 % Sodium Chloride Mini Bag 100 ML IVPB SCH ×4 (04:02→22:01)
[2021-07-10 04:03] LABS: ABG Base Excess 11 mEq/L (-2 to 3); ABG HCO3 40 mEq/L (21-27); ABG Oxygen Saturation 87 % (95-98); ABG PCO2 79 mmHg (35-45); ABG PH 7.31 pH Units (7.32-7.45); ABG PO2 61 mmHg (85-104); ABG TCO2 42 mEq/L (20-26); Blood Gas VT 350 cc
[2021-07-10] MEDS: Doxycycline 100 MG in 0.9 % Sodium Chloride Mini Bag 100 ML IVPB SCH ×2 (05:01→17:55)
[2021-07-10] MEDS: Cisatracurium 200 MG in 0.9 % Sodium Chloride 180 ML IVC SCH ×2 (05:16→17:59)
[2021-07-10] MEDS: Furosemide 40 MG/4 ML VIAL IVP SCH ×2 (07:46→17:11)
[2021-07-10] MEDS: Chlorhexidine Rinse 15 ML MOUTHWASH MM SCH ×2 (07:46→19:38)
[2021-07-10] MEDS: Pantoprazole 40 MG VIAL IVP SCH (07:47)
[2021-07-10] MEDS: Dexamethasone Sodium Phos/PF 10 MG/ML VIAL IVP SCH (07:47)
[2021-07-10] MEDS: FentaNYL (PF) 1,000 MCG/100 ML IV.SOLN IVC SCH ×2 (09:23→19:35)
[2021-07-10] MEDS ORDERED: Clinimix E 5%-15% SOLUTION 2,000 ML with MVI, adult with vitamin K 10 ML, ZN/CU/MN/SE... IVC SCH (17:00)
[2021-07-10] MEDS: Norepinephrine 4 MG/254 ML IV.SOLN IVC SCH (19:14)
[2021-07-10] MEDS: Dexmedetomidine HCl 400 MCG/100 ML MLS IVC SCH (19:15)
[2021-07-11] MEDS: Artificial Tears SOLN 15 ML BOTTLE BOTH EYES SCH ×6 (03:06→23:03)
[2021-07-11] MEDS: Insulin LISPRO 300 UNITS/3 ML VIAL SUBQ SCH ×7 (03:06→23:03)
[2021-07-11] MEDS: *HR* Enoxaparin 100 MG/ML SYRINGE SQ SCH ×2 (03:06→15:52)
[2021-07-11 03:24] LABS: Red Cell Distribution Width 15.4 % (11.5-14.5)
[2021-07-11 03:25] LABS: Hematocrit 42.4 % (35.3-44.9); Hemoglobin 12.7 g/dL (11.5-15.4); Immature Platelets 20.5 % (1.1-6.1); Mean Corpuscular Hemoglobin 31.1 pg (28.0-33.3); Mean Corpuscular Volume 103.9 fL (83.0-100.0); Mean Platelet Volume 13.4 fL (9.4-12.4); Red Blood Count 4.08 M/mcL (3.82-4.97); White Blood Count 16.6 K/mcL (4.3-11.1)
[2021-07-11] MEDS: Cisatracurium 200 MG in 0.9 % Sodium Chloride 180 ML IVC SCH ×2 (03:31→14:15)
[2021-07-11 03:38] LABS: BUN/Creatinine Ratio 70 (6-26); Blood Urea Nitrogen 47 mg/dL (8-23); Calcium 9.3 mg/dL (8.6-10.3); Carbon Dioxide 35 mEq/L (23-29); Chloride 103 mEq/L (98-107); Glucose 180 mg/dL (70-105); Magnesium 2.3 mg/dL (1.6-2.6); Osmolality,Calculated 319 (280-300); Phosphorous 4.1 mg/dL (2.7-4.5); Potassium 4.1 mEq/L (3.5-5.1); Sodium 146 mEq/L (136-145); eGFR For African Americans > 60 (> 60); eGFR For Non-African Americans > 60 (> 60)
[2021-07-11] MEDS: Ipratropium 1 PUFF INHALER IH SCH ×4 (04:39→21:52)
[2021-07-11] MEDS: Ampicillin/Sulbactam 1,500 MG in 0.9 % Sodium Chloride Mini Bag 100 ML IVPB SCH ×4 (04:52→21:00)
[2021-07-11 04:54] LABS: ABG Base Excess 8 mEq/L (-2 to 3); ABG HCO3 37 mEq/L (21-27); ABG Oxygen Saturation 86 % (95-98); ABG PCO2 75 mmHg (35-45); ABG PO2 59 mmHg (85-104); ABG TCO2 39 mEq/L (20-26); Blood Gas Modality ASSIST CONTROL; Blood Gas VT 350 cc
[2021-07-11] MEDS: FentaNYL (PF) 1,000 MCG/100 ML IV.SOLN IVC SCH ×3 (05:03→15:53)
[2021-07-11] MEDS: Doxycycline 100 MG in 0.9 % Sodium Chloride Mini Bag 100 ML IVPB SCH ×2 (05:14→17:23)
[2021-07-11] MEDS: Dexmedetomidine HCl 400 MCG/100 ML MLS IVC SCH ×2 (05:18→23:03)
[2021-07-11] MEDS: Chlorhexidine Rinse 15 ML MOUTHWASH MM SCH ×2 (08:04→19:32)
[2021-07-11] MEDS: Pantoprazole 40 MG VIAL IVP SCH (08:04)
[2021-07-11] MEDS: Furosemide 40 MG/4 ML VIAL IVP SCH ×2 (08:04→15:52)
[2021-07-11] MEDS: Dexamethasone Sodium Phos/PF 10 MG/ML VIAL IVP SCH (08:05)
[2021-07-11] MEDS ORDERED: Clinimix E 5%-15% SOLUTION 2,000 ML with MVI, adult with vitamin K 10 ML, ZN/CU/MN/SE... IVC SCH (17:00)
[2021-07-11] MEDS: Norepinephrine 4 MG/254 ML IV.SOLN IVC SCH (18:46)
[2021-07-12] MEDS: Cisatracurium 200 MG in 0.9 % Sodium Chloride 180 ML IVC SCH ×3 (00:05→23:07)
[2021-07-12] MEDS: FentaNYL (PF) 1,000 MCG/100 ML IV.SOLN IVC SCH ×3 (01:02→21:30)
[2021-07-12] MEDS: Artificial Tears SOLN 15 ML BOTTLE BOTH EYES SCH ×5 (03:19→20:14)
[2021-07-12] MEDS: Insulin LISPRO 300 UNITS/3 ML VIAL SUBQ SCH ×5 (03:20→20:15)
[2021-07-12] MEDS: *HR* Enoxaparin 100 MG/ML SYRINGE SQ SCH ×2 (03:20→16:26)
[2021-07-12] MEDS: Ipratropium 1 PUFF INHALER IH SCH ×4 (03:34→21:48)
[2021-07-12 03:53] LABS: Basophils % 0.4 %; Eosinophils # 0.6 K/mcL (0.0-0.6); Eosinophils % 6.6 %; Hematocrit 36.7 % (35.3-44.9); Hemoglobin 11.1 g/dL (11.5-15.4); Immature Granulocytes % 3.2 % (0-4); Lymphocytes # 0.8 K/mcL (0.6-4.6); Lymphocytes % 8.4 %; Mean Corpuscular HGB Conc 30.2 g/dL (31.6-35.5); Mean Corpuscular Hemoglobin 31.8 pg (28.0-33.3); Mean Corpuscular Volume 105.2 fL (83.0-100.0); Mean Platelet Volume 13.3 fL (9.4-12.4); Monocytes # 0.4 K/mcL (0.0-1.3); Monocytes % 3.9 %; Neutrophils # 7.6 K/mcL (1.6-8.9); Nucleated Red Blood Cells 0.9 /100 WBC (0); Platelet Count 117 K/mcL (140-400); Red Blood Count 3.49 M/mcL (3.82-4.97); Red Cell Distribution Width 15.6 % (11.5-14.5); Segmented Neutrophils % 77.5 %; White Blood Count 9.7 K/mcL (4.3-11.1)
[2021-07-12 04:01] LABS: BUN/Creatinine Ratio 76 (6-26); Blood Urea Nitrogen 45 mg/dL (8-23); Calcium 9.1 mg/dL (8.6-10.3); Carbon Dioxide 42 mEq/L (23-29); Chloride 104 mEq/L (98-107); Glucose 138 mg/dL (70-105); Magnesium 2.4 mg/dL (1.6-2.6); Osmolality,Calculated 320 (280-300); Phosphorous 2.9 mg/dL (2.7-4.5); Potassium 3.9 mEq/L (3.5-5.1); Sodium 148 mEq/L (136-145); eGFR For African Americans > 60 (> 60); eGFR For Non-African Americans > 60 (> 60)
[2021-07-12] MEDS: Ampicillin/Sulbactam 1,500 MG in 0.9 % Sodium Chloride Mini Bag 100 ML IVPB SCH ×3 (04:02→16:27)
[2021-07-12 04:36] LABS: ABG Base Excess 11 mEq/L (-2 to 3); ABG HCO3 40 mEq/L (21-27); ABG Oxygen Saturation 85 % (95-98); ABG PCO2 78 mmHg (35-45); ABG PH 7.32 pH Units (7.32-7.45); ABG PO2 57 mmHg (85-104); ABG TCO2 43 mEq/L (20-26); Blood Gas VT 350 cc
[2021-07-12] MEDS: Doxycycline 100 MG in 0.9 % Sodium Chloride Mini Bag 100 ML IVPB SCH ×2 (05:04→18:45)
[2021-07-12] MEDS: Pantoprazole 40 MG VIAL IVP SCH (08:01)
[2021-07-12] MEDS: Furosemide 40 MG/4 ML VIAL IVP SCH ×2 (08:02→16:26)
[2021-07-12] MEDS: Chlorhexidine Rinse 15 ML MOUTHWASH MM SCH ×2 (08:02→20:13)
[2021-07-12] MEDS: Norepinephrine 4 MG/254 ML IV.SOLN IVC SCH (16:21)
[2021-07-12] MEDS ORDERED: Clinimix E 5%-15% SOLUTION 2,000 ML with MVI, adult with vitamin K 10 ML IVC SCH (17:00)
[2021-07-12] MEDS: Dexmedetomidine HCl 400 MCG/100 ML MLS IVC SCH (20:13)
[2021-07-13] MEDS: Ampicillin/Sulbactam 1,500 MG in 0.9 % Sodium Chloride Mini Bag 100 ML IVPB SCH ×5 (00:17→23:47)
[2021-07-13] MEDS: Artificial Tears SOLN 15 ML BOTTLE BOTH EYES SCH ×7 (00:17→23:46)
[2021-07-13] MEDS: Insulin LISPRO 300 UNITS/3 ML VIAL SUBQ SCH ×7 (00:30→23:50)
[2021-07-13] MEDS: *HR* Enoxaparin 100 MG/ML SYRINGE SQ SCH ×2 (03:37→16:29)
[2021-07-13 03:39] LABS: Basophils % 0.5 %; Hemoglobin 10.9 g/dL (11.5-15.4)
[2021-07-13 03:41] LABS: Basophils # 0.1 K/mcL (0.0-0.2); Eosinophils # 0.9 K/mcL (0.0-0.6); Eosinophils % 9.2 %; Hematocrit 37.4 % (35.3-44.9); Immature Granulocytes % 4.6 % (0-4); Immature Platelets 18.9 % (1.1-6.1); Lymphocytes # 0.7 K/mcL (0.6-4.6); Lymphocytes % 7.6 %; Mean Corpuscular HGB Conc 29.1 g/dL (31.6-35.5); Mean Corpuscular Hemoglobin 30.5 pg (28.0-33.3); Mean Corpuscular Volume 104.8 fL (83.0-100.0); Mean Platelet Volume 13.5 fL (9.4-12.4); Monocytes # 0.3 K/mcL (0.0-1.3); Monocytes % 3.1 %; Nucleated Red Blood Cells 1.4 /100 WBC (0); Platelet Count 113 K/mcL (140-400); Red Blood Count 3.57 M/mcL (3.82-4.97); Red Cell Distribution Width 15.9 % (11.5-14.5); White Blood Count 9.3 K/mcL (4.3-11.1)
[2021-07-13 03:52] LABS: BUN/Creatinine Ratio 84 (6-26); Blood Urea Nitrogen 47 mg/dL (8-23); Calcium 9.3 mg/dL (8.6-10.3); Carbon Dioxide 41 mEq/L (23-29); Chloride 104 mEq/L (98-107); Glucose 163 mg/dL (70-105); Osmolality,Calculated 324 (280-300); Potassium 3.8 mEq/L (3.5-5.1); Sodium 149 mEq/L (136-145); eGFR For African Americans > 60 (> 60); eGFR For Non-African Americans > 60 (> 60)
[2021-07-13] MEDS: Ipratropium 1 PUFF INHALER IH SCH ×4 (04:09→22:17)
[2021-07-13 04:30] LABS: ABG Base Excess 13 mEq/L (-2 to 3); ABG HCO3 42 mEq/L (21-27); ABG Oxygen Saturation 84 % (95-98); ABG PCO2 81 mmHg (35-45); ABG PH 7.32 pH Units (7.32-7.45); ABG PO2 56 mmHg (85-104); ABG TCO2 44 mEq/L (20-26); Blood Gas Modality ASSIST CONTROL; Blood Gas VT 350 cc
[2021-07-13] MEDS: Doxycycline 100 MG in 0.9 % Sodium Chloride Mini Bag 100 ML IVPB SCH ×2 (05:50→16:44)
[2021-07-13] MEDS: Furosemide 40 MG/4 ML VIAL IVP SCH ×2 (07:40→16:39)
[2021-07-13] MEDS: Pantoprazole 40 MG VIAL IVP SCH (07:40)
[2021-07-13] MEDS: Chlorhexidine Rinse 15 ML MOUTHWASH MM SCH ×2 (07:40→20:29)
[2021-07-13] MEDS: Cholecalciferol (D-3) 1,000 UNIT (25MCG) TABLET PO SCH (07:45)
[2021-07-13] MEDS: FentaNYL (PF) 1,000 MCG/100 ML IV.SOLN IVC SCH ×2 (07:55→20:10)
[2021-07-13] MEDS: Cisatracurium 200 MG in 0.9 % Sodium Chloride 180 ML IVC SCH ×2 (09:59→22:09)
[2021-07-13] MEDS: Norepinephrine 4 MG/254 ML IV.SOLN IVC SCH (12:51)
[2021-07-13] MEDS ORDERED: Furosemide 40 MG/4 ML VIAL IVP ONE (13:16)
[2021-07-13] MEDS ORDERED: Bumetanide 1 MG/4 ML VIAL IVP ONE (13:51)
[2021-07-13] MEDS: Dexmedetomidine HCl 400 MCG/100 ML MLS IVC SCH (15:16)
[2021-07-13] MEDS ORDERED: Clinimix E 5%-15% SOLUTION 2,000 ML with MVI, adult with vitamin K 10 ML IVC SCH (17:00)
[2021-07-14] MEDS: Ampicillin/Sulbactam 1,500 MG in 0.9 % Sodium Chloride Mini Bag 100 ML IVPB SCH (03:57)
[2021-07-14] MEDS: Artificial Tears SOLN 15 ML BOTTLE BOTH EYES SCH ×5 (03:57→20:19)
[2021-07-14] MEDS: *HR* Enoxaparin 100 MG/ML SYRINGE SQ SCH ×2 (03:57→15:18)
[2021-07-14] MEDS: Ipratropium 1 PUFF INHALER IH SCH ×4 (04:09→22:04)
[2021-07-14] MEDS: Insulin LISPRO 300 UNITS/3 ML VIAL SUBQ SCH ×5 (04:11→20:18)
[2021-07-14] MEDS: FentaNYL (PF) 1,000 MCG/100 ML IV.SOLN IVC SCH ×3 (04:21→22:00)
[2021-07-14 04:31] LABS: ABG Base Excess 16 mEq/L (-2 to 3); ABG HCO3 46 mEq/L (21-27); ABG Oxygen Saturation 83 % (95-98); ABG PCO2 89 mmHg (35-45); ABG PH 7.32 pH Units (7.32-7.45); ABG PO2 56 mmHg (85-104); ABG TCO2 48 mEq/L (20-26); Blood Gas Modality ASSIST CONTROL; Blood Gas VT 350 cc
[2021-07-14 04:33] LABS: Mean Corpuscular Volume 107.9 fL (83.0-100.0); Red Cell Distribution Width 16.7 % (11.5-14.5)
[2021-07-14 04:35] LABS: Basophils # 0.1 K/mcL (0.0-0.2); Basophils % 0.7 %; Eosinophils # 0.5 K/mcL (0.0-0.6); Eosinophils % 5.2 %; Hematocrit 35.7 % (35.3-44.9); Hemoglobin 10.2 g/dL (11.5-15.4); Immature Granulocytes % 5.7 % (0-4); Immature Platelets 19.8 % (1.1-6.1); Lymphocytes # 0.9 K/mcL (0.6-4.6); Lymphocytes % 9.7 %; Mean Corpuscular HGB Conc 28.6 g/dL (31.6-35.5); Mean Corpuscular Hemoglobin 30.8 pg (28.0-33.3); Mean Platelet Volume 14.1 fL (9.4-12.4); Monocytes # 0.4 K/mcL (0.0-1.3); Monocytes % 4.2 %; Neutrophils # 6.6 K/mcL (1.6-8.9); Nucleated Red Blood Cells 2.6 /100 WBC (0); Platelet Count 121 K/mcL (140-400); Red Blood Count 3.31 M/mcL (3.82-4.97); Segmented Neutrophils % 74.5 %; White Blood Count 8.9 K/mcL (4.3-11.1)
[2021-07-14 04:52] LABS: BUN/Creatinine Ratio 77 (6-26); Blood Urea Nitrogen 53 mg/dL (8-23); Calcium 9.3 mg/dL (8.6-10.3); Carbon Dioxide 44 mEq/L (23-29); Chloride 105 mEq/L (98-107); Glucose 153 mg/dL (70-105); Osmolality,Calculated 329 (280-300); Potassium 4.1 mEq/L (3.5-5.1); Sodium 151 mEq/L (136-145); eGFR For African Americans > 60 (> 60); eGFR For Non-African Americans > 60 (> 60)
[2021-07-14 05:40] LABS: Platelet Estimate Slight Decrease (Normal)
[2021-07-14] MEDS: Dexmedetomidine HCl 400 MCG/100 ML MLS IVC SCH (06:03)
[2021-07-14] MEDS: Doxycycline 100 MG in 0.9 % Sodium Chloride Mini Bag 100 ML IVPB SCH (06:03)
[2021-07-14] MEDS: Pantoprazole 40 MG VIAL IVP SCH (08:31)
[2021-07-14] MEDS: Chlorhexidine Rinse 15 ML MOUTHWASH MM SCH ×2 (08:31→20:09)
[2021-07-14] MEDS: Cholecalciferol (D-3) 1,000 UNIT (25MCG) TABLET PO SCH (08:32)
[2021-07-14] MEDS: Furosemide 40 MG/4 ML VIAL IVP SCH ×2 (08:32→17:54)
[2021-07-14] MEDS: Cisatracurium 200 MG in 0.9 % Sodium Chloride 180 ML IVC SCH (10:13)
[2021-07-14] MEDS: Norepinephrine 4 MG/254 ML IV.SOLN IVC SCH (10:45)
[2021-07-14] MEDS: Piperacillin/Tazobactam 3.375 GM in 0.9 % Sodium Chloride Mini Bag 100 ML IVPB SCH ×2 (11:56→20:09)
[2021-07-14] MEDS ORDERED: Clinimix E 5%-15% SOLUTION 2,000 ML with MVI, adult with vitamin K 10 ML IVC SCH (17:00)
[2021-07-15] MEDS: Insulin LISPRO 300 UNITS/3 ML VIAL SUBQ SCH ×6 (00:06→20:42)
[2021-07-15] MEDS: Artificial Tears SOLN 15 ML BOTTLE BOTH EYES SCH ×6 (00:07→20:35)
[2021-07-15] MEDS: Ipratropium 1 PUFF INHALER IH SCH ×4 (03:59→21:30)
[2021-07-15 04:06] LABS: ABG Base Excess 15 mEq/L (-2 to 3); ABG HCO3 44 mEq/L (21-27); ABG Oxygen Saturation 97 % (95-98); ABG PCO2 87 mmHg (35-45); ABG PH 7.32 pH Units (7.32-7.45); ABG PO2 110 mmHg (85-104); ABG TCO2 47 mEq/L (20-26); Blood Gas Modality ASSIST CONTROL; Blood Gas VT 350 cc
[2021-07-15] MEDS: Piperacillin/Tazobactam 3.375 GM in 0.9 % Sodium Chloride Mini Bag 100 ML IVPB SCH ×3 (04:44→20:35)
[2021-07-15] MEDS: *HR* Enoxaparin 100 MG/ML SYRINGE SQ SCH ×2 (04:45→17:06)
[2021-07-15 04:49] LABS: Basophils % 0.8 %; Nucleated Red Blood Cells 2.3 /100 WBC (0)
[2021-07-15] MEDS: FentaNYL (PF) 1,000 MCG/100 ML IV.SOLN IVC SCH ×3 (04:50→17:28)
[2021-07-15 04:51] LABS: Basophils # 0.1 K/mcL (0.0-0.2); Eosinophils # 0.5 K/mcL (0.0-0.6); Hematocrit 35.5 % (35.3-44.9); Hemoglobin 10.1 g/dL (11.5-15.4); Immature Granulocytes % 4.8 % (0-4); Immature Platelets 16.9 % (1.1-6.1); Lymphocytes # 0.8 K/mcL (0.6-4.6); Lymphocytes % 10.1 %; Mean Corpuscular HGB Conc 28.5 g/dL (31.6-35.5); Mean Corpuscular Volume 108.9 fL (83.0-100.0); Mean Platelet Volume 13.6 fL (9.4-12.4); Monocytes # 0.3 K/mcL (0.0-1.3); Monocytes % 4.5 %; Neutrophils # 5.5 K/mcL (1.6-8.9); Platelet Count 103 K/mcL (140-400); Red Blood Count 3.26 M/mcL (3.82-4.97); Red Cell Distribution Width 16.7 % (11.5-14.5); Segmented Neutrophils % 72.8 %; White Blood Count 7.6 K/mcL (4.3-11.1)
[2021-07-15 05:09] LABS: Magnesium 2.2 mg/dL (1.6-2.6); Phosphorous 3.2 mg/dL (2.7-4.5)
[2021-07-15 05:13] LABS: BUN/Creatinine Ratio 80 (6-26); Blood Urea Nitrogen 47 mg/dL (8-23); Calcium 9.1 mg/dL (8.6-10.3); Carbon Dioxide 45 mEq/L (23-29); Chloride 107 mEq/L (98-107); Glucose 138 mg/dL (70-105); Osmolality,Calculated 328 (280-300); Potassium 3.9 mEq/L (3.5-5.1); Sodium 152 mEq/L (136-145); eGFR For African Americans > 60 (> 60); eGFR For Non-African Americans > 60 (> 60)
[2021-07-15] MEDS: Pantoprazole 40 MG VIAL IVP SCH (08:29)
[2021-07-15] MEDS: Cholecalciferol (D-3) 1,000 UNIT (25MCG) TABLET PO SCH (08:29)
[2021-07-15] MEDS: Chlorhexidine Rinse 15 ML MOUTHWASH MM SCH ×2 (08:29→20:34)
[2021-07-15] MEDS: Cisatracurium 200 MG in 0.9 % Sodium Chloride 180 ML IVC SCH ×2 (09:16→17:28)
[2021-07-15] MEDS: Midazolam HCl 50 MG/100 ML IV.SOLN IVC SCH (09:19)
[2021-07-15] MEDS ORDERED: Clinimix E 5%-15% SOLUTION 2,000 ML with MVI, adult with vitamin K 10 ML IVC SCH (17:00)
[2021-07-15] MEDS: Norepinephrine 4 MG/254 ML IV.SOLN IVC SCH (17:07)
[2021-07-15] MEDS: Docusate Oral Soln 100 MG/10 ML UDC GTUBE SCH (20:35)
[2021-07-16] MEDS: Artificial Tears SOLN 15 ML BOTTLE BOTH EYES SCH ×6 (00:01→20:24)
[2021-07-16] MEDS: Insulin LISPRO 300 UNITS/3 ML VIAL SUBQ SCH ×6 (00:01→20:47)
[2021-07-16] MEDS: FentaNYL (PF) 1,000 MCG/100 ML IV.SOLN IVC SCH ×4 (00:45→22:36)
[2021-07-16] MEDS: Ipratropium 1 PUFF INHALER IH SCH ×4 (03:20→21:48)
[2021-07-16] MEDS: *HR* Enoxaparin 100 MG/ML SYRINGE SQ SCH ×2 (03:22→16:10)
[2021-07-16] MEDS: Piperacillin/Tazobactam 3.375 GM in 0.9 % Sodium Chloride Mini Bag 100 ML IVPB SCH ×3 (03:22→20:24)
[2021-07-16] MEDS: Midazolam HCl 50 MG/100 ML IV.SOLN IVC SCH (03:36)
[2021-07-16 03:37] LABS: Hematocrit 34.4 % (35.3-44.9)
[2021-07-16 03:39] LABS: Hemoglobin 9.7 g/dL (11.5-15.4); Immature Platelets 22.6 % (1.1-6.1); Mean Corpuscular HGB Conc 28.2 g/dL (31.6-35.5); Mean Corpuscular Hemoglobin 30.9 pg (28.0-33.3); Mean Corpuscular Volume 109.6 fL (83.0-100.0); Mean Platelet Volume 13.9 fL (9.4-12.4); Red Blood Count 3.14 M/mcL (3.82-4.97); Red Cell Distribution Width 17.3 % (11.5-14.5); White Blood Count 9.3 K/mcL (4.3-11.1)
[2021-07-16 04:01] LABS: BUN/Creatinine Ratio 72 (6-26); Blood Urea Nitrogen 38 mg/dL (8-23); Calcium 9.2 mg/dL (8.6-10.3); Carbon Dioxide 41 mEq/L (23-29); Chloride 102 mEq/L (98-107); Glucose 177 mg/dL (70-105); Magnesium 2.2 mg/dL (1.6-2.6); Osmolality,Calculated 311 (280-300); Phosphorous 3.2 mg/dL (2.7-4.5); Potassium 4.3 mEq/L (3.5-5.1); Sodium 144 mEq/L (136-145); Triglycerides 346 mg/dL (< 150); eGFR For African Americans > 60 (> 60); eGFR For Non-African Americans > 60 (> 60)
[2021-07-16] MEDS: Cisatracurium 200 MG in 0.9 % Sodium Chloride 180 ML IVC SCH ×2 (04:26→15:01)
[2021-07-16 04:35] LABS: ABG Base Excess 11 mEq/L (-2 to 3); ABG HCO3 42 mEq/L (21-27); ABG Oxygen Saturation 88 % (95-98); ABG PCO2 90 mmHg (35-45); ABG PH 7.27 pH Units (7.32-7.45); ABG PO2 65 mmHg (85-104); ABG TCO2 45 mEq/L (20-26); Blood Gas VT 350 cc
[2021-07-16] MEDS: Norepinephrine 4 MG/254 ML IV.SOLN IVC SCH ×2 (06:12→21:46)
[2021-07-16] MEDS: Cholecalciferol (D-3) 1,000 UNIT (25MCG) TABLET PO SCH (07:58)
[2021-07-16] MEDS: Chlorhexidine Rinse 15 ML MOUTHWASH MM SCH ×2 (07:58→20:23)
[2021-07-16] MEDS: Docusate Oral Soln 100 MG/10 ML UDC GTUBE SCH ×2 (07:58→20:23)
[2021-07-16] MEDS: Pantoprazole 40 MG VIAL IVP SCH (07:58)
[2021-07-17] MEDS: Artificial Tears SOLN 15 ML BOTTLE BOTH EYES SCH ×7 (00:19→23:08)
[2021-07-17] MEDS: Insulin LISPRO 300 UNITS/3 ML VIAL SUBQ SCH ×7 (00:20→23:16)
[2021-07-17] MEDS: Ipratropium 1 PUFF INHALER IH SCH ×4 (04:02→22:48)
[2021-07-17 04:05] LABS: BUN/Creatinine Ratio 62 (6-26); Blood Urea Nitrogen 44 mg/dL (8-23); Calcium 9.6 mg/dL (8.6-10.3); Carbon Dioxide 41 mEq/L (23-29); Chloride 103 mEq/L (98-107); Glucose 137 mg/dL (70-105); Osmolality,Calculated 313 (280-300); Potassium 4.8 mEq/L (3.5-5.1); Sodium 145 mEq/L (136-145); eGFR For African Americans > 60 (> 60); eGFR For Non-African Americans > 60 (> 60)
[2021-07-17] MEDS: Piperacillin/Tazobactam 3.375 GM in 0.9 % Sodium Chloride Mini Bag 100 ML IVPB SCH ×3 (04:10→19:28)
[2021-07-17] MEDS: *HR* Enoxaparin 100 MG/ML SYRINGE SQ SCH ×2 (04:10→15:03)
[2021-07-17] MEDS: Cisatracurium 200 MG in 0.9 % Sodium Chloride 180 ML IVC SCH ×3 (04:16→22:56)
[2021-07-17 04:28] LABS: ABG Base Excess 12 mEq/L (-2 to 3); ABG HCO3 41 mEq/L (21-27); ABG Oxygen Saturation 70 % (95-98); ABG PCO2 86 mmHg (35-45); ABG PH 7.28 pH Units (7.32-7.45); ABG PO2 44 mmHg (85-104); ABG TCO2 43 mEq/L (20-26); Blood Gas Modality ASSIST CONTROL; Blood Gas VT 350 cc
[2021-07-17 04:39] LABS: Hematocrit 32.1 % (35.3-44.9); Immature Platelets 22.5 % (1.1-6.1); Mean Corpuscular Hemoglobin 30.7 pg (28.0-33.3); Mean Corpuscular Volume 109.6 fL (83.0-100.0); Mean Platelet Volume 14.1 fL (9.4-12.4); Red Blood Count 2.93 M/mcL (3.82-4.97); Red Cell Distribution Width 17.8 % (11.5-14.5); White Blood Count 9.4 K/mcL (4.3-11.1)
[2021-07-17] MEDS: Midazolam HCl 50 MG/100 ML IV.SOLN IVC SCH (04:50)
[2021-07-17] MEDS: FentaNYL (PF) 1,000 MCG/100 ML IV.SOLN IVC SCH ×4 (04:51→23:36)
[2021-07-17] MEDS: Chlorhexidine Rinse 15 ML MOUTHWASH MM SCH ×2 (08:36→20:03)
[2021-07-17] MEDS: Cholecalciferol (D-3) 1,000 UNIT (25MCG) TABLET PO SCH (08:36)
[2021-07-17] MEDS: Docusate Oral Soln 100 MG/10 ML UDC GTUBE SCH ×2 (08:36→20:03)
[2021-07-17] MEDS: Pantoprazole 40 MG VIAL IVP SCH (08:36)
[2021-07-17] MEDS: Norepinephrine 4 MG/254 ML IV.SOLN IVC SCH (14:00)
[2021-07-18] MEDS: Norepinephrine 4 MG/254 ML IV.SOLN IVC SCH ×3 (00:01→21:55)
[2021-07-18] MEDS: Midazolam HCl 50 MG/100 ML IV.SOLN IVC SCH ×2 (02:20→21:10)
[2021-07-18] MEDS: Artificial Tears SOLN 15 ML BOTTLE BOTH EYES SCH ×6 (03:03→23:06)
[2021-07-18] MEDS: *HR* Enoxaparin 100 MG/ML SYRINGE SQ SCH ×2 (03:03→16:46)
[2021-07-18] MEDS: Piperacillin/Tazobactam 3.375 GM in 0.9 % Sodium Chloride Mini Bag 100 ML IVPB SCH ×3 (03:03→19:08)
[2021-07-18] MEDS: Insulin LISPRO 300 UNITS/3 ML VIAL SUBQ SCH ×6 (03:16→23:07)
[2021-07-18 03:41] LABS: Hemoglobin 8.7 g/dL (11.5-15.4)
[2021-07-18 03:43] LABS: Hematocrit 30.5 % (35.3-44.9); Immature Platelets 22.4 % (1.1-6.1); Mean Corpuscular HGB Conc 28.5 g/dL (31.6-35.5); Mean Corpuscular Volume 108.5 fL (83.0-100.0); Mean Platelet Volume 14.1 fL (9.4-12.4); Red Blood Count 2.81 M/mcL (3.82-4.97); Red Cell Distribution Width 17.6 % (11.5-14.5); White Blood Count 9.8 K/mcL (4.3-11.1)
[2021-07-18 03:49] LABS: BUN/Creatinine Ratio 63 (6-26); Blood Urea Nitrogen 41 mg/dL (8-23); Calcium 9.8 mg/dL (8.6-10.3); Carbon Dioxide 37 mEq/L (23-29); Chloride 103 mEq/L (98-107); Glucose 159 mg/dL (70-105); Osmolality,Calculated 309 (280-300); Potassium 5.2 mEq/L (3.5-5.1); Sodium 143 mEq/L (136-145); eGFR For African Americans > 60 (> 60); eGFR For Non-African Americans > 60 (> 60)
[2021-07-18] MEDS: Ipratropium 1 PUFF INHALER IH SCH ×4 (04:00→19:53)
[2021-07-18 04:16] LABS: ABG Base Excess 13 mEq/L (-2 to 3); ABG HCO3 41 mEq/L (21-27); ABG Oxygen Saturation 86 % (95-98); ABG PCO2 85 mmHg (35-45); ABG PO2 61 mmHg (85-104); ABG TCO2 44 mEq/L (20-26); Blood Gas Modality ASSIST CONTROL; Blood Gas VT 380 cc
[2021-07-18] MEDS: FentaNYL (PF) 1,000 MCG/100 ML IV.SOLN IVC SCH ×3 (04:24→18:23)
[2021-07-18] MEDS: Docusate Oral Soln 100 MG/10 ML UDC GTUBE SCH ×2 (08:39→20:06)
[2021-07-18] MEDS: Chlorhexidine Rinse 15 ML MOUTHWASH MM SCH ×2 (08:39→20:06)
[2021-07-18] MEDS: Cholecalciferol (D-3) 1,000 UNIT (25MCG) TABLET PO SCH (08:39)
[2021-07-18] MEDS: Pantoprazole 40 MG VIAL IVP SCH (08:39)
[2021-07-18] MEDS: Cisatracurium 200 MG in 0.9 % Sodium Chloride 180 ML IVC SCH ×2 (12:04→23:14)
[2021-07-19] MEDS: FentaNYL (PF) 1,000 MCG/100 ML IV.SOLN IVC SCH ×4 (00:22→22:54)
[2021-07-19] MEDS: Artificial Tears SOLN 15 ML BOTTLE BOTH EYES SCH ×6 (03:05→23:06)
[2021-07-19] MEDS: Insulin LISPRO 300 UNITS/3 ML VIAL SUBQ SCH ×5 (03:06→20:29)
[2021-07-19] MEDS: Piperacillin/Tazobactam 3.375 GM in 0.9 % Sodium Chloride Mini Bag 100 ML IVPB SCH ×3 (03:08→20:32)
[2021-07-19] MEDS: *HR* Enoxaparin 100 MG/ML SYRINGE SQ SCH ×2 (03:08→16:27)
[2021-07-19 03:32] LABS: Hematocrit 30.1 % (35.3-44.9); Hemoglobin 8.6 g/dL (11.5-15.4); Mean Corpuscular HGB Conc 28.6 g/dL (31.6-35.5); Mean Corpuscular Hemoglobin 31.2 pg (28.0-33.3); Mean Corpuscular Volume 109.1 fL (83.0-100.0); Mean Platelet Volume 13.6 fL (9.4-12.4); Platelet Count 138 K/mcL (140-400); Red Blood Count 2.76 M/mcL (3.82-4.97); Red Cell Distribution Width 18.3 % (11.5-14.5); White Blood Count 10.9 K/mcL (4.3-11.1)
[2021-07-19 03:55] LABS: BUN/Creatinine Ratio 54 (6-26); Blood Urea Nitrogen 43 mg/dL (8-23); Calcium 9.8 mg/dL (8.6-10.3); Carbon Dioxide 35 mEq/L (23-29); Chloride 105 mEq/L (98-107); Glucose 121 mg/dL (70-105); Osmolality,Calculated 310 (280-300); Potassium 5.1 mEq/L (3.5-5.1); Sodium 144 mEq/L (136-145); eGFR For African Americans > 60 (> 60); eGFR For Non-African Americans > 60 (> 60)
[2021-07-19] MEDS: Ipratropium 1 PUFF INHALER IH SCH ×4 (04:00→20:34)
[2021-07-19 04:09] LABS: ABG Base Excess 9 mEq/L (-2 to 3); ABG HCO3 36 mEq/L (21-27); ABG Oxygen Saturation 92 % (95-98); ABG PCO2 68 mmHg (35-45); ABG PH 7.34 pH Units (7.32-7.45); ABG PO2 69 mmHg (85-104); ABG TCO2 39 mEq/L (20-26); Blood Gas Modality ASSIST CONTROL; Blood Gas VT 400 cc
[2021-07-19] MEDS: Docusate Oral Soln 100 MG/10 ML UDC GTUBE SCH ×2 (08:11→20:28)
[2021-07-19] MEDS: Pantoprazole 40 MG VIAL IVP SCH (08:11)
[2021-07-19] MEDS: Cholecalciferol (D-3) 1,000 UNIT (25MCG) TABLET PO SCH (08:11)
[2021-07-19] MEDS: Chlorhexidine Rinse 15 ML MOUTHWASH MM SCH ×2 (08:11→20:27)
[2021-07-19] MEDS: Norepinephrine 4 MG/254 ML IV.SOLN IVC SCH ×2 (09:27→20:26)
[2021-07-19] MEDS: Cisatracurium 200 MG in 0.9 % Sodium Chloride 180 ML IVC SCH ×2 (11:03→21:05)
[2021-07-19 16:03] LABS: BUN/Creatinine Ratio 57 (6-26); Blood Urea Nitrogen 48 mg/dL (8-23); Calcium 9.8 mg/dL (8.6-10.3); Carbon Dioxide 35 mEq/L (23-29); Chloride 105 mEq/L (98-107); Glucose 171 mg/dL (70-105); Osmolality,Calculated 317 (280-300); Potassium 4.9 mEq/L (3.5-5.1); Sodium 145 mEq/L (136-145); eGFR For African Americans > 60 (> 60); eGFR For Non-African Americans > 60 (> 60)
[2021-07-19] MEDS: Midazolam HCl 50 MG/100 ML IV.SOLN IVC SCH (23:55)
[2021-07-20] MEDS: Insulin LISPRO 300 UNITS/3 ML VIAL SUBQ SCH ×7 (00:23→23:43)
[2021-07-20 03:19] LABS: ABG Base Excess 6 mEq/L (-2 to 3); ABG HCO3 35 mEq/L (21-27); ABG Oxygen Saturation 86 % (95-98); ABG PCO2 77 mmHg (35-45); ABG PH 7.26 pH Units (7.32-7.45); ABG PO2 62 mmHg (85-104); ABG TCO2 37 mEq/L (20-26); Blood Gas VT 400 cc
[2021-07-20] MEDS: Ipratropium 1 PUFF INHALER IH SCH ×4 (03:19→20:09)
[2021-07-20] MEDS: Artificial Tears SOLN 15 ML BOTTLE BOTH EYES SCH ×6 (03:24→23:45)
[2021-07-20] MEDS: *HR* Enoxaparin 100 MG/ML SYRINGE SQ SCH ×2 (03:24→16:17)
[2021-07-20] MEDS: Piperacillin/Tazobactam 3.375 GM in 0.9 % Sodium Chloride Mini Bag 100 ML IVPB SCH ×3 (03:25→20:03)
[2021-07-20 04:15] LABS: VBG Ionized Calcium 1.32 mmol/L (1.15-1.35)
[2021-07-20 04:20] LABS: Red Cell Distribution Width 18.6 % (11.5-14.5)
[2021-07-20 04:21] LABS: Hematocrit 27.6 % (35.3-44.9); Hemoglobin 8.2 g/dL (11.5-15.4); Mean Corpuscular HGB Conc 29.7 g/dL (31.6-35.5); Mean Corpuscular Hemoglobin 32.5 pg (28.0-33.3); Mean Corpuscular Volume 109.5 fL (83.0-100.0); Mean Platelet Volume 12.9 fL (9.4-12.4); Nucleated Red Blood Cells 12.6 /100 WBC (0); Platelet Count 148 K/mcL (140-400); Red Blood Count 2.52 M/mcL (3.82-4.97); White Blood Count 10.9 K/mcL (4.3-11.1)
[2021-07-20 04:37] LABS: Magnesium 2.3 mg/dL (1.6-2.6); Phosphorous 5.1 mg/dL (2.7-4.5)
[2021-07-20 04:38] LABS: BUN/Creatinine Ratio 61 (6-26); Blood Urea Nitrogen 51 mg/dL (8-23); Calcium 9.7 mg/dL (8.6-10.3); Carbon Dioxide 33 mEq/L (23-29); Chloride 107 mEq/L (98-107); Glucose 125 mg/dL (70-105); Osmolality,Calculated 313 (280-300); Sodium 144 mEq/L (136-145); eGFR For African Americans > 60 (> 60); eGFR For Non-African Americans > 60 (> 60)
[2021-07-20] MEDS: Cisatracurium 200 MG in 0.9 % Sodium Chloride 180 ML IVC SCH ×3 (05:23→22:00)
[2021-07-20] MEDS: FentaNYL (PF) 1,000 MCG/100 ML IV.SOLN IVC SCH ×3 (06:31→22:05)
[2021-07-20 06:34] LABS: Anisocytosis 2+ (Not Present); Hypochromasia Present (Not Present); Lymphocytes # 1.5 K/mcL (0.6-4.6); Monocytes # 0.2 K/mcL (0.0-1.3); Neutrophils # 8.5 K/mcL (1.6-8.9); Platelet Estimate Normal (Normal); Polychromasia 1+ (Not Present)
[2021-07-20] MEDS: Norepinephrine 4 MG/254 ML IV.SOLN IVC SCH ×2 (08:00→20:02)
[2021-07-20] MEDS: Pantoprazole 40 MG VIAL IVP SCH (08:47)
[2021-07-20] MEDS: Cholecalciferol (D-3) 1,000 UNIT (25MCG) TABLET PO SCH (08:48)
[2021-07-20] MEDS: Chlorhexidine Rinse 15 ML MOUTHWASH MM SCH ×2 (08:48→20:02)
[2021-07-20] MEDS: Docusate Oral Soln 100 MG/10 ML UDC GTUBE SCH ×2 (08:48→20:01)
[2021-07-20] MEDS ORDERED: Furosemide 40 MG/4 ML VIAL IVP ONE (10:45)
[2021-07-20 13:36] LABS: BUN/Creatinine Ratio 55 (6-26); Blood Urea Nitrogen 51 mg/dL (8-23); Calcium 9.5 mg/dL (8.6-10.3); Carbon Dioxide 35 mEq/L (23-29); Chloride 106 mEq/L (98-107); Glucose 160 mg/dL (70-105); Osmolality,Calculated 317 (280-300); Potassium 4.6 mEq/L (3.5-5.1); Sodium 145 mEq/L (136-145); eGFR For African Americans > 60 (> 60); eGFR For Non-African Americans > 60 (> 60)
[2021-07-21] MEDS: Artificial Tears SOLN 15 ML BOTTLE BOTH EYES SCH ×6 (03:06→23:45)
[2021-07-21] MEDS: *HR* Enoxaparin 100 MG/ML SYRINGE SQ SCH ×2 (03:06→15:18)
[2021-07-21] MEDS: Piperacillin/Tazobactam 3.375 GM in 0.9 % Sodium Chloride Mini Bag 100 ML IVPB SCH ×3 (03:07→19:43)
[2021-07-21] MEDS: Midazolam HCl 50 MG/100 ML IV.SOLN IVC SCH ×3 (03:48→15:45)
[2021-07-21 04:04] LABS: White Blood Count 10.6 K/mcL (4.3-11.1)
[2021-07-21 04:05] LABS: Hematocrit 26.1 % (35.3-44.9); Hemoglobin 7.6 g/dL (11.5-15.4); Mean Corpuscular HGB Conc 29.1 g/dL (31.6-35.5); Mean Corpuscular Hemoglobin 31.7 pg (28.0-33.3); Mean Corpuscular Volume 108.8 fL (83.0-100.0); Mean Platelet Volume 12.8 fL (9.4-12.4); Platelet Count 147 K/mcL (140-400); Red Cell Distribution Width 19.1 % (11.5-14.5)
[2021-07-21 04:05] LABS: VBG Ionized Calcium 1.29 mmol/L (1.15-1.35)
[2021-07-21] MEDS: Ipratropium 1 PUFF INHALER IH SCH ×4 (04:15→19:25)
[2021-07-21 04:23] LABS: BUN/Creatinine Ratio 54 (6-26); Blood Urea Nitrogen 51 mg/dL (8-23); Calcium 9.5 mg/dL (8.6-10.3); Carbon Dioxide 33 mEq/L (23-29); Chloride 107 mEq/L (98-107); Glucose 134 mg/dL (70-105); Magnesium 2.1 mg/dL (1.6-2.6); Osmolality,Calculated 314 (280-300); Phosphorous 4.9 mg/dL (2.7-4.5); Potassium 4.6 mEq/L (3.5-5.1); Sodium 144 mEq/L (136-145); eGFR For African Americans > 60 (> 60); eGFR For Non-African Americans > 60 (> 60)
[2021-07-21 04:26] LABS: ABG Base Excess 6 mEq/L (-2 to 3); ABG HCO3 35 mEq/L (21-27); ABG Oxygen Saturation 88 % (95-98); ABG PCO2 78 mmHg (35-45); ABG PH 7.25 pH Units (7.32-7.45); ABG PO2 66 mmHg (85-104); ABG TCO2 37 mEq/L (20-26); Blood Gas VT 400 cc
[2021-07-21] MEDS: Insulin LISPRO 300 UNITS/3 ML VIAL SUBQ SCH ×6 (04:29→23:45)
[2021-07-21] MEDS: Norepinephrine 4 MG/254 ML IV.SOLN IVC SCH ×3 (05:49→22:12)
[2021-07-21] MEDS: FentaNYL (PF) 1,000 MCG/100 ML IV.SOLN IVC SCH ×3 (05:51→20:00)
[2021-07-21] MEDS: Cisatracurium 200 MG in 0.9 % Sodium Chloride 180 ML IVC SCH ×2 (07:40→16:38)
[2021-07-21] MEDS: Chlorhexidine Rinse 15 ML MOUTHWASH MM SCH ×2 (08:18→19:43)
[2021-07-21] MEDS: Pantoprazole 40 MG VIAL IVP SCH (08:18)
[2021-07-21] MEDS: Docusate Oral Soln 100 MG/10 ML UDC GTUBE SCH ×2 (08:18→19:44)
[2021-07-21] MEDS: Furosemide 40 MG/4 ML VIAL IVP SCH (08:19)
[2021-07-21] MEDS: Cholecalciferol (D-3) 1,000 UNIT (25MCG) TABLET PO SCH (08:20)
[2021-07-21 11:08] LABS: Hemoglobin 7.8 g/dL (11.5-15.4)
[2021-07-22] MEDS: Cisatracurium 200 MG in 0.9 % Sodium Chloride 180 ML IVC SCH ×3 (01:00→18:15)
[2021-07-22] MEDS: Ipratropium 1 PUFF INHALER IH SCH ×4 (03:07→22:05)
[2021-07-22] MEDS: FentaNYL (PF) 1,000 MCG/100 ML IV.SOLN IVC SCH ×3 (03:23→18:46)
[2021-07-22] MEDS: *HR* Enoxaparin 100 MG/ML SYRINGE SQ SCH ×2 (03:23→15:50)
[2021-07-22] MEDS: Artificial Tears SOLN 15 ML BOTTLE BOTH EYES SCH ×5 (03:23→20:33)
[2021-07-22] MEDS: Piperacillin/Tazobactam 3.375 GM in 0.9 % Sodium Chloride Mini Bag 100 ML IVPB SCH ×3 (03:24→19:50)
[2021-07-22 04:01] LABS: Hemoglobin 7.4 g/dL (11.5-15.4); Red Cell Distribution Width 19.9 % (11.5-14.5)
[2021-07-22 04:02] LABS: Eosinophils # 0.2 K/mcL (0.0-0.6); Mean Corpuscular HGB Conc 28.5 g/dL (31.6-35.5); Mean Corpuscular Hemoglobin 31.5 pg (28.0-33.3); Mean Corpuscular Volume 110.6 fL (83.0-100.0); Mean Platelet Volume 13.1 fL (9.4-12.4); Nucleated Red Blood Cells 12.5 /100 WBC (0); Platelet Count 166 K/mcL (140-400); Red Blood Count 2.35 M/mcL (3.82-4.97); White Blood Count 10.4 K/mcL (4.3-11.1)
[2021-07-22 04:16] LABS: BUN/Creatinine Ratio 51 (6-26); Blood Urea Nitrogen 52 mg/dL (8-23); Calcium 9.8 mg/dL (8.6-10.3); Carbon Dioxide 32 mEq/L (23-29); Chloride 108 mEq/L (98-107); Glucose 152 mg/dL (70-105); Osmolality,Calculated 317 (280-300); Potassium 4.5 mEq/L (3.5-5.1); Sodium 145 mEq/L (136-145); eGFR For African Americans > 60 (> 60); eGFR For Non-African Americans 56 (> 60)
[2021-07-22] MEDS: Insulin LISPRO 300 UNITS/3 ML VIAL SUBQ SCH ×5 (04:23→20:33)
[2021-07-22 04:28] LABS: ABG Base Excess 6 mEq/L (-2 to 3); ABG HCO3 35 mEq/L (21-27); ABG Oxygen Saturation 82 % (95-98); ABG PCO2 78 mmHg (35-45); ABG PH 7.26 pH Units (7.32-7.45); ABG PO2 56 mmHg (85-104); ABG TCO2 37 mEq/L (20-26); Blood Gas Modality ASSIST CONTROL; Blood Gas VT 400 cc
[2021-07-22 04:43] LABS: Basophilic Stippling 1+ (Not Present); Polychromasia 1+ (Not Present)
[2021-07-22 04:44] LABS: Hypochromasia Present (Not Present); Platelet Estimate Normal (Normal)
[2021-07-22 04:45] LABS: Lymphocytes # 1.3 K/mcL (0.6-4.6); Macrocytosis Present (Not Present); Monocytes # 0.4 K/mcL (0.0-1.3); Neutrophils # 7.5 K/mcL (1.6-8.9)
[2021-07-22 04:46] LABS: Anisocytosis 1+ (Not Present)
[2021-07-22] MEDS: Midazolam HCl 50 MG/100 ML IV.SOLN IVC SCH ×2 (06:07→09:35)
[2021-07-22] MEDS: Norepinephrine 4 MG/254 ML IV.SOLN IVC SCH ×2 (07:15→15:24)
[2021-07-22] MEDS: Cholecalciferol (D-3) 1,000 UNIT (25MCG) TABLET PO SCH (07:27)
[2021-07-22] MEDS: Chlorhexidine Rinse 15 ML MOUTHWASH MM SCH ×2 (07:27→20:40)
[2021-07-22] MEDS: Docusate Oral Soln 100 MG/10 ML UDC GTUBE SCH ×2 (07:27→20:40)
[2021-07-22] MEDS: Furosemide 40 MG/4 ML VIAL IVP SCH (07:27)
[2021-07-22] MEDS: Pantoprazole 40 MG VIAL IVP SCH (07:27)
[2021-07-23] MEDS: Artificial Tears SOLN 15 ML BOTTLE BOTH EYES SCH ×6 (00:49→20:21)
[2021-07-23] MEDS: Insulin LISPRO 300 UNITS/3 ML VIAL SUBQ SCH ×6 (00:50→20:21)
[2021-07-23] MEDS: FentaNYL (PF) 1,000 MCG/100 ML IV.SOLN IVC SCH ×5 (01:02→21:36)
[2021-07-23] MEDS: Norepinephrine 4 MG/254 ML IV.SOLN IVC SCH ×2 (02:27→19:33)
[2021-07-23] MEDS: Cisatracurium 200 MG in 0.9 % Sodium Chloride 180 ML IVC SCH ×3 (02:55→21:35)
[2021-07-23] MEDS: Ipratropium 1 PUFF INHALER IH SCH ×4 (03:40→21:55)
[2021-07-23 04:10] LABS: Hematocrit 22.3 % (35.3-44.9); Hemoglobin 6.6 g/dL (11.5-15.4); Mean Corpuscular HGB Conc 29.6 g/dL (31.6-35.5); Mean Corpuscular Hemoglobin 32.5 pg (28.0-33.3); Mean Corpuscular Volume 109.9 fL (83.0-100.0); Mean Platelet Volume 12.9 fL (9.4-12.4); Platelet Count 169 K/mcL (140-400); Red Blood Count 2.03 M/mcL (3.82-4.97); Red Cell Distribution Width 20.6 % (11.5-14.5); White Blood Count 9.9 K/mcL (4.3-11.1)
[2021-07-23 04:13] LABS: ABG Base Excess 4 mEq/L (-2 to 3); ABG HCO3 32 mEq/L (21-27); ABG Oxygen Saturation 84 % (95-98); ABG PCO2 67 mmHg (35-45); ABG PH 7.28 pH Units (7.32-7.45); ABG PO2 56 mmHg (85-104); ABG TCO2 34 mEq/L (20-26); Blood Gas VT 400 cc
[2021-07-23] MEDS: Piperacillin/Tazobactam 3.375 GM in 0.9 % Sodium Chloride Mini Bag 100 ML IVPB SCH ×2 (04:26→11:17)
[2021-07-23] MEDS: *HR* Enoxaparin 100 MG/ML SYRINGE SQ SCH ×2 (04:29→15:47)
[2021-07-23] MEDS: Midazolam HCl 50 MG/100 ML IV.SOLN IVC SCH (08:00)
[2021-07-23] MEDS: Docusate Oral Soln 100 MG/10 ML UDC GTUBE SCH ×2 (08:30→20:31)
[2021-07-23] MEDS: Chlorhexidine Rinse 15 ML MOUTHWASH MM SCH ×2 (08:31→20:30)
[2021-07-23] MEDS: Pantoprazole 40 MG VIAL IVP SCH (08:31)
[2021-07-23 09:21] LABS: VBG Ionized Calcium 1.23 mmol/L (1.15-1.35)
[2021-07-23 09:34] LABS: Hematocrit 23.3 % (35.3-44.9); Hemoglobin 6.8 g/dL (11.5-15.4)
[2021-07-23 09:37] LABS: BUN/Creatinine Ratio 46 (6-26); Blood Urea Nitrogen 46 mg/dL (8-23); Carbon Dioxide 30 mEq/L (23-29); Chloride 108 mEq/L (98-107); Glucose 104 mg/dL (70-105); Osmolality,Calculated 314 (280-300); Phosphorous 4.2 mg/dL (2.7-4.5); Potassium 3.6 mEq/L (3.5-5.1); Sodium 146 mEq/L (136-145); eGFR For African Americans > 60 (> 60); eGFR For Non-African Americans 56 (> 60)
[2021-07-23] MEDS: Furosemide 40 MG/4 ML VIAL IVP SCH (10:51)
[2021-07-23] MEDS: Nystatin POWDER 30 GM BOTTLE TP SCH ×3 (10:52→20:22)
[2021-07-23] MEDS: Cholecalciferol (D-3) 1,000 UNIT (25MCG) TABLET PO SCH (11:16)
[2021-07-23 19:46] LABS: Bilirubin,Urine Negative (Negative); Blood,Urine Moderate (Negative); Clarity,Urine Ex.Turbid (Clear); Color,Urine Yellow (Yellow); Glucose,Urine (UA) Normal (Normal); Ketones,Urine Negative (Negative); Leukocyte Esterase,Urine Moderate (Negative); Nitrite,Urine Negative (Negative); Protein,Urine 50 mg/dL (Neg-Trace); Specific Gravity,Urine 1.023 (1.010-1.025); Urobilinogen,Urine Normal (Normal)
[2021-07-23 19:47] LABS: Bacteria,Urine Many per hpf (None-Few); Budding Yeast,Urine Many per hpf (None Seen)
[2021-07-23 19:48] LABS: RBC,Urine 0-3 per hpf (0-3)
[2021-07-23 19:49] LABS: Squamous Epithelial Cell,Urine Few per hpf (None-Few)
[2021-07-24] MEDS: Insulin LISPRO 300 UNITS/3 ML VIAL SUBQ SCH ×3 (00:17→07:58)
[2021-07-24] MEDS: Artificial Tears SOLN 15 ML BOTTLE BOTH EYES SCH ×3 (00:18→07:58)
[2021-07-24] MEDS: Ipratropium 1 PUFF INHALER IH SCH ×2 (03:20→10:35)
[2021-07-24 04:16] LABS: ABG Base Excess 2 mEq/L (-2 to 3); ABG HCO3 30 mEq/L (21-27); ABG Oxygen Saturation 77 % (95-98); ABG PCO2 73 mmHg (35-45); ABG PH 7.22 pH Units (7.32-7.45); ABG PO2 51 mmHg (85-104); ABG TCO2 32 mEq/L (20-26); Blood Gas VT 400 cc
[2021-07-24 04:25] LABS: VBG Ionized Calcium 1.23 mmol/L (1.15-1.35)
[2021-07-24 04:43] LABS: Mean Platelet Volume 12.5 fL (9.4-12.4)
[2021-07-24 04:44] LABS: Hematocrit 24.7 % (35.3-44.9); Hemoglobin 7.3 g/dL (11.5-15.4); Mean Corpuscular HGB Conc 29.6 g/dL (31.6-35.5); Mean Corpuscular Hemoglobin 32.4 pg (28.0-33.3); Mean Corpuscular Volume 109.8 fL (83.0-100.0); Platelet Count 238 K/mcL (140-400); Red Blood Count 2.25 M/mcL (3.82-4.97); Red Cell Distribution Width 21.5 % (11.5-14.5); White Blood Count 13.3 K/mcL (4.3-11.1)
[2021-07-24] MEDS: Cisatracurium 200 MG in 0.9 % Sodium Chloride 180 ML IVC SCH (05:00)
[2021-07-24 05:05] LABS: Calcium 9.6 mg/dL (8.6-10.3); Magnesium 2.2 mg/dL (1.6-2.6); Phosphorous 5.2 mg/dL (2.7-4.5); Potassium 3.5 mEq/L (3.5-5.1)
[2021-07-24] MEDS: FentaNYL (PF) 1,000 MCG/100 ML IV.SOLN IVC SCH ×2 (05:14→13:57)
[2021-07-24] MEDS: *HR* Enoxaparin 100 MG/ML SYRINGE SQ SCH (05:17)
[2021-07-24] MEDS: Docusate Oral Soln 100 MG/10 ML UDC GTUBE SCH (07:57)
[2021-07-24] MEDS: Cholecalciferol (D-3) 1,000 UNIT (25MCG) TABLET PO SCH (07:57)
[2021-07-24] MEDS: Pantoprazole 40 MG VIAL IVP SCH (07:57)
[2021-07-24] MEDS: Chlorhexidine Rinse 15 ML MOUTHWASH MM SCH (07:57)
[2021-07-24] MEDS: Nystatin POWDER 30 GM BOTTLE TP SCH (07:58)
[2021-07-24] MEDS: Furosemide 40 MG/4 ML VIAL IVP SCH (07:58)
[2021-07-24 08:03] VITALS: TEMP 101
[2021-07-24] MEDS ORDERED: *HR* FentaNYL (PF) 100 MCG/2 ML VIAL IVP PRN (10:59)
[2021-07-24] MEDS ORDERED: *HR* LORazepam 2 MG/ML VIAL IVP PRN (10:59)
[2021-07-24] MEDS ORDERED: Haloperidol Lactate 5 MG/ML VIAL IVP PRN (11:00)
[2021-07-24] MEDS ORDERED: Atropine 1% Opth Drops 100 DROP/5 ML BOTTLE SL PRN (11:01)
[2021-07-24 11:09] VITALS: PULSE 104
[2021-07-24 12:53] VITALS: O2SAT 90
[2021-07-24 12:57] VITALS: BP 109/72
== END 2021-07-24 14:25 | disposition expired | DRG 207 ==
LOC: 2ANU → SUATTDRO 18:17 → 2NNU 22:11 → SUATTDRO 06-19 13:04 → ICNU 07-02 17:20 → 2NNU 07-05 23:30 → ICNU 07-08 11:44
PROVIDERS: ADMIT Student in an Organized Health Care Education/Training Program; ATTEND General Practice